=== PATIENT | female | born 1955 | race Caucasian/White ===

== ENCOUNTER → 2022-08-15 14:56 | Outpatient (BNVA) | payer OTHER, SELFPAY | PROVIDERS: PCP Internal Medicine; Visit Provider Nurse Practitioner Family | DX: G43.009 Migraine without aura, not intractable, without status migrainosus (principal); M54.2 Cervicalgia | CPT/HCPCS: 99202 ==

== ENCOUNTER → 2022-12-25 15:31 | Outpatient (BNVA) | payer MEDICARE, MEDICAID, SELFPAY | PROVIDERS: PCP Internal Medicine; Visit Provider Nurse Practitioner Family | DX: G43.009 Migraine without aura, not intractable, without status migrainosus (principal); M54.2 Cervicalgia; I10 Essential (primary) hypertension; Z79.899 Other long term (current) drug therapy | CPT/HCPCS: 99212 ==

== ENCOUNTER → 2023-05-19 15:00 | Outpatient (BNVA) | payer MEDICARE, MEDICAID, SELFPAY | PROVIDERS: Visit Provider Nurse Practitioner Family | DX: G43.009 Migraine without aura, not intractable, without status migrainosus (principal); M54.2 Cervicalgia | CPT/HCPCS: 99212 ==

== ENCOUNTER 2024-11-11 11:09 | Outpatient (AMB) | payer OTHER, SELFPAY ==
[2024-11-11 11:33] VITALS: BP 150/90; PULSE 70; O2SAT 97
--- NOTE | 2024-11-11 11:33 | A.OFFVIS_ITS ---
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 Accompanied by: Self / Same As Patient Allergies cat dander Allergy (Unknown, Verified 11/11/24 11:34) Unknown grass pollen Allergy (Unknown, Verified 11/11/24 11:34) Unknown Pork/Porcine Containing Products Adverse Reaction (Unknown, Unverified 11/11/24 11:59) mormon preference Medication List - Last Reconciled 11/11/24 by EMILY Lanza acetaminophen ER 650 mg PO Q8H PRN atorvastatin 40 mg PO DAILY cholecalciferol (vitamin D3) (Vitamin D3) 50 mcg PO DAILY donepezil 5 mg PO DAILY duloxetine 60 mg PO DAILY magnesium oxide 400 mg PO BEDTIME 30 days propranolol 10 mg PO BID 30 days riboflavin (vitamin B2) 400 mg PO DAILY 30 days tizanidine 2 mg PO BEDTIME PRN topiramate 100 mg PO BEDTIME 30 days HPI Comments Details: 69-yr-old female presents for f/u visit for migraine accompanied by her daughter, who helps with interpretation per patient request. Pt denies any significant interval medical changes. The migraines occur 2-3 times weekly, which are her typical migraine- characterized by pain moving from the back of the head to the temples. Severity is stable with medication. Blood pressure is elevated, 150/90 mmHg today against a baseline of 120s-130s/60s-80s, exacerbated by weather and missed medication dose. Denies any current chest pain, shortness of breath. They occasionally are shortness of breath on exertion. Current medications include Propranolol, topiramate, Tylenol,, alongside supplements. Previous Ibuprofen use was effective but ceased- per previous PCP was concerned for risk gastritis. Patient states she prefers ibuprofen for other joint pains as well. Recently was started on Cymbalta, however they do not believe she is taking this. She does not take capsules due to mormon reasons. She does have a new Voltaren gel order. Patient does not find Tylenol very effective. Liver disorder exists without renal issues. Pt reports headaches and neck pain are stable. Tolerating B2, Mag, Prorpanolol 10mg bid, and Topiramate well. Rarely needing to take Tylenol, but when she does it helps. Headache questionnaire: Age/time of onset: In her 60s Preceding causes: none Prodrome symptoms: None Aura: None Headache characteristics: Moderate-severe, 7/10, Starts in the neck and back of the head, and moves up over the head into frontal region. Pain is pounding then steady pain. Can also have a pinching sensation that turns into a full headache in bilateral temples. Associated symptoms: SBP > 120, some photophobia, phonophobia. Denies focal weakness, autonomic symptoms. Postdrome: Unsure Aggravating factors: Neck pain or BP > 120. [facility] Medical History (Updated 12/25/22 @ 16:25 by EMILY Lanza) Necrotizing soft tissue infection Allergic rhinitis MCI (mild cognitive impairment) Palpitations Prolonged QT interval Hepatitis B, chronic Urinary incontinence Dysphagia Chronic back pain Varicose veins of both lower extremities HLD (hyperlipidemia) HTN (hypertension) Surgical History History of carpal tunnel release Social History Alcohol intake: never Patient Tobacco Use Status: Never used Tobacco Physical Exam Vital Signs: Last Vital Signs Pulse 70 11/11/24 11:33 BP 150/90 H 11/11/24 11:33 Pulse Ox 97 11/11/24 11:33 Oxygen Delivery Method Room Air 11/11/24 11:33 Const General: cooperative and no acute distress Orientation/consciousness: patient oriented x3 HEENT Head: Yes normocephalic Resp Effort & Inspection: normal respiratory effort and able to speak in complete sentences Neuro General: patient oriented x3, gait normal and CN's II-XI intact bilaterally Cognition (Neuro): normal cognition Motor exam (neuro): 5/5 motor strength present throughout Psych Appearance: grossly normal Mental Status: mental status grossly normal Speech and movement: Normal speech and movement present Affect: normal affect Attitude: cooperative Thought process: Normal thought process present Assessment & Plan Assessment & Plan (1) Migraine without aura: Code(s): G43.009 - Migraine without aura, not intractable, without status migrainosus Category: Medical (2) Cervicalgia: Comment: C-spine MRI w/o ([facility] 10/02/2020): IMPRESSION: Stable minimal degenerative changes of the cervical spine. No high-grade spinal canal or foraminal stenosis. No abnormal signal within the cervical cord. Code(s): M54.2 - Cervicalgia Category: Medical Plan Foir HTN: Advised to check BP at home, elevated BP persists, consider increasing propranolol dose. Seek urgent medical attention if red flag symptoms develop. For acute migraine headache treatment: May continue Tylenol prn. Trial Ubrogepant (Ubrelvy) 100mg tab, 1/2 - 1 tab (50-100mg) at onset of headache, may repeat in 2 hours. Max of 2 tabs (200mg) per 24 hours. May adjunct with OTC Tylenol 650-1000 mg q 4-6 hours. Acute migraine medication contraindications: triptans d/t HLD, HTN ? For headache prevention medication: Continue Riboflavin 400mg qam Continue Magnesium 400mg qhs Continue Propranolol 10mg bid. Continue Topiramate 100mg qhs- for headaches and neck/shoulder pain. Previous migraine prevention medication trials: n/a Migraine prevention medication contraindications: none at this time. ? f/u in 6 months or sooner prn. Medications: New ubrogepant (Ubrelvy) take at onset of migraine, may repeat in 2hrs (may take w/ Tylenol) 50 - 100 mg (0.5 - 1 x 100 mg) PO ONCE 30 days PRN 16 tabs 3RF migraine headache Refilled propranolol 10 mg PO BID 30 days 60 tabs 6RF magnesium oxide may hold for loose stools 400 mg PO BEDTIME 30 days 30 tabs 11RF riboflavin (vitamin B2) 400 mg PO DAILY 30 days 30 tabs 11RF topiramate 100 mg PO BEDTIME 30 days 30 tabs 6RF Coding Level of Care Code Est Pt Level 4 (71327) Diagnoses Migraine without aura G43.009 Cervicalgia M54.2
--- OUTSIDE RECORDS SUMMARY | 2024-11-11 13:17 | XMS_ITS | Clinical Summary ---
Author Organization [facility] Address [address] [place] [address] Care Team Providers Care Adobe Layer Name Role Phone Dasha Cook Primary Care Provider [phone] Source Comments PLEASE NOTE, if this patient is a minor, it may be UNLAWFUL to discuss sensitive information that is contained in these records (such as FAMILY PLANNING, MENTAL HEALTH or SUBSTANCE ABUSE) with the minor patient's parent or other person without the patient's specific authorization.[facility] Allergies No known active allergies Medications vitamin D3 1,000 unit capsuleIndicati ons:Vitamin D deficiency disease Take 1 Cap by mouth once daily. 30 Cap 4 10/20/2014 Active ibuprofen (ADVIL,MOTRIN) 800 mg tabletIndicatio ns:Bilateral carpal tunnel syndrome Take 1 Tab by mouth 3 (three) times daily as needed for pain. Take with food. 90 Tab 2 06/07/2015 Active simvastatin (ZOCOR) 40 mg tablet Take 1 Tab by mouth nightly at bedtime. 30 Tab 6 07/25/2015 Active Active Problems Problem Noted Date Diagnosed Date Osteopenia 03/17/2014 Overview (10/20/2014): DEXA 03/17/14. Colonoscopy refused 01/14/2014 Right ankle pain 12/30/2010 Overview (04/21/2013): S/p sprain 12/30/10. F/u [facility] Vitamin D deficiency disease 10/31/2010 Bilateral shoulder pain 03/31/2008 Overview (04/21/2013): Injection right 08/29/11 @ [facility]. Hyperlipidemia 09/18/2007 LBP (low back pain) 02/14/2006 Overview (04/21/2013): [facility] Chronic hepatitis B (HCC-CMS) 12/23/2005 Overview (04/21/2013): F/u [facility]. Hep B SAG positive 12/2005. Bilateral carpal tunnel syndrome Overview (11/04/2013): F/u [facility]. Lateral epicondylitis of both elbows Left hip pain Overview (04/21/2013): POST-OP SCARIRING SECONDARY TO INFECTION 1998 LEFT HIP. POST-INJECTION ABSCESS LEFT GLUTEAL/HIP AREA. Immunizations Name Administration Dates Next Due INFLUENZA, SEASONAL, INJECTABLE 04/21/2013 MMR (MMR II/Priorix) 11/01/2008,11/25/2005 Td(adult),2 Lf tetanus toxoid,preservative free 12/25/2005,11/25/2005 Varicella, Live Vaccine 11/25/2005 Family History Medical History Relation Name Comments Heart Problems Father Relation Name Status Comments Father (Age 73) [place] Mother (Age 63) ? cause de ath Social History Tobacco Use Types Packs/Day Years Used Date Smoking Tobacco: Never Smokeless Tobacco: Never Alcohol Use Standard Drinks/Week Comments No 0 (1 standard drink = 0.6 oz pur e alcohol) Social Connections Answer Date Recorded Social Connections and Isolation 0 04/17/2019 Financial Resource Strain Answer Date R ecorded Financial Resource Strain 0 2018 Stress Answer Date Recorded Stress 0 04/17/2019 Physical Activity Answer Date Recorded Physical Activity 0 04/17/2019 Food Insecurity Answer Date Recorded Food 0 04/17/2019 Transportation Needs Answer Date Record ed Transportation 0 04/17/2019 Housing Stability Answer Date Recorded Housing 0 04/17/2019 Safety and Environment Answer Date Ervin rded Safety 0 04/17/2019 Utilities Answer Date Recorded Utilities 0 04/17/2019 Employment Answer Date Recorded Employment 0 04/17/2019 Comments No Sex and Gender Information Value Date Recorded Sex Assigned at Not on file Legal Sex Female 11:36 AM PDT Gender Identity Not on file Sexual Orientation Not on file Last Filed Vital Signs Vital Sign Reading Time Taken Comments Blood Pressure 102/60 10/20/2014 2:58 PM EST Pulse 56 10/20/2014 2:58 PM EST Temperature 36.2 ??C (97.2 ??F) 10/20/2014 2:58 PM ES T Respiratory Rate 13 10/20/2014 2:58 PM EST Oxygen Saturation - - Inhaled Oxygen Concentration - - Weight 65.8 kg (145 lb) 10/20/2014 2:58 PM EST Height 152.4 cm (5') 10/20/2014 2:58 PM EST Body Mass Index 28.32 10/20/2014 2:58 PM EST Plan of Treatment Not on file Insurance [facility] Care Teams Adobe Layer Relationship Specialty Start Date End Date Dasha Cook PA [address] [place] [id number] PCP - General 04/21/13
--- OUTSIDE RECORDS SUMMARY | 2024-11-11 13:17 | XMS_ITS | Encounter Summary ---
Author Organization [facility] Address [id number] [place] [id number] Care Team Providers Care [employer] Certified Network Associate Name Role Phone Juan Jonas MD Primary Care Provider [phone] Reason for Referral * Imaging (Routine) - Pending Review Specialty Diagnoses / Procedures Referred By Suyapa nelson Referred To Contact Radiology Diagnoses Hepatitis B, chronic (CMS/HCC) Procedures US Abdomen Complete Geoffrey Vargas MD [address] [address] Phone: tel: fax: [address] [address] Phone: tel: Referral ID Status Reason Start Date Expiration Date V isits Requested Visits Authorized [id number] Pending Review 11/02/2024 11/02/2025 1 1 Reason for Visit * Reason Comments Medicare Annual Wellness Visit Initial Encounter Details Date Type Department Care Team (Latest Contact Info) Description 11/02/2024 2:30 PM EDT Office Visit Internal Medicine - [address] [phone] Geoffrey Vargas MD [address] [address] Medicare annual wellness visit, subsequent (Primary Dx); Routine general medical examination at a health care facility; Mixed hyperlipidemia; Vitamin D deficiency; Allergic rhinitis, unspecified seasonality, unspecified trigger; Pain of left hip; Chronic nonintractable headache, unspecified headache type; Chronic left shoulder pain; Colon cancer screening; Other fatigue; Other abnormal glucose; Hepatitis B, chronic (CMS/HCC); Chronic osteoarthritis Social History Tobacco Use Types Packs/Day Years Used Date Smoking Tobacco: Never Smokeless Tobacco: Never Alcohol Use Standard Drinks/Week Comments No 0 (1 standard drink = 0.6 oz pur e alcohol) Comments Unknown Sex and Gender Information Value Date Recorded Sex Assigned at Female 11/11/2024 10:33 AM EDT Legal Sex Female 1:48 AM EST Gender Identity Female 11/11/2024 10:33 AM EDT Sexual Orientation Straight 11/11/2024 10 :33 AM EDT documented as of this encounter Last Filed Vital Signs Vital Sign Reading Time Taken Comments Blood Pressure 128/62 11/02/2024 2:32 PM EDT Pulse 95 11/02/2024 2:32 PM EDT Temperature - - Respiratory Rate - - Oxygen Saturation 98% 11/02/2024 2:32 PM EDT Inhaled Oxygen Concentration - - Weight 68 kg (150 lb) 11/02/2024 2:32 PM EDT Height - - Body Mass Index 27.44 05/30/2023 3:34 PM EDT documented in this encounter Patient Instructions * Attachments The following attachments cannot be sent through Care Everywhere. * Mammogram (Mauritian) * Colon Cancer: Screening (Mauritian) * Healthy Eating: At Home: Quick List (Mauritian) * Physical Activity: Walking (Mauritian) * Advance Directives (Mauritian) * Advance Care Planning (Mauritian) documented in this encounter Ordered Prescriptions Prescription Sig Dispense Quantity Refills Last Filled Start Date End Date cholecalciferol (Vitamin D3) 50 mcg (2,000 unit) tablet Take 1 tablet (2,000 Units total) by mouth 1 (one) time each day. 90 tablet 1 11/06/2024 diclofenac (VOLTAREN) 1 % topical gel Apply 2 g topically 4 (four) times a day. 100 g 5 11/02/2024 acetaminophen (Tylenol Extra Strength) 500 mg tablet Take 2 tablets (1,000 mg total) by mouth every 6 (six) hours if needed for mild pain. 90 tablet 2 11/02/2024 5 documented in this encounter Progress Notes * Geoffrey Vargas MD - 11/02/2024 2:30 PM EDT Annual Wellness Visit Health Maintenance Due Topic Date Due ??? Pneumococcal Vaccine: 50+ Years (1 of 2 - PCV) Never done ??? Zoster Vaccines (1 of 2) 2007 ??? Colorectal Cancer Screening: Colonoscopy Never done ??? Depression Screening Never done ??? Hepatitis C Screening Never done ??? Social Influencers of Health Screening Never done ??? Medicare Annual Wellness Visit Never done ??? Influenza Vaccine (1) 04/25/2024 ??? COVID-19 Vaccine ( season) 2024 Adult vaccinations: CDC Recommendations Resources for Educating Adult Patients about Vaccines CDC * Geoffrey Vargas MD - 11/02/2024 2:30 PM EDTAddended by: GEOFFREY VARGAS on: 11/06/2024 12:24 PM Modules accepted: Orders * Geoffrey Vargas MD - 11/02/2024 2:30 PM EDT Michelle Mariano is a 69 y.o. female who presents for a Subsequent Medicare Annual Wellness Visit. HPI History of Present Illness The patient is a 69-year-old female presenting for a Medicare annual wellness visit and follow-up. She is accompanied by her daughter. 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 MEDICATIONS Current: gabapentin, ibuprofen, Tylenol IMMUNIZATIONS She is due for influenza, COVID-19 booster, RSV, and pneumonia vaccines. Current Providers List: Patient Care Team: Juan Jonas MD as PCP - General (Internal Medicine) Risk Assessments Body mass index is 27.44 kg/m??. The BMI is in the acceptable range. Calculated fall risk level: low Depression Risk Score: 1 Depression Severity: None-minimal Proposed Treatment Actions: None Hearing Whisper Test: PASS Vision Screening Was a Snellen eye exam done?: Yes Mini Cog Clock Drawing Test: 0 Word Recall: 2 Mini Cog Score: 2 Mini Cog Results: Positive screen for dementia STEADI Fall Risk Have you fallen in the past year? no Feels unsteady when standing or walking? no Are you worried about falling? no Activity of Daily Living (ADLs) Do you need help from others for your personal care such as eating, dressing, toileting, or gettingaround the house?: Yes Do you experience incontinence?: No Instrumental Activities of Daily Living (IADLs) Do you need help with using the telephone?: No Do you need help with shopping?: Yes Do you need help with food preparation?: Yes Do you need help with housekeeping?: Yes Do you need help with laundry?: Yes Do you need help handling finances?: Yes Do you drive?: No Do you manage your own medication?: No Health Status In general, the patient reports health as: fair In general, patient reports life as: good Patient reports sleep pattern as: restless Have you seen a dentist in the last year?: Yes Physical Activity Do you exercise for about 20 minutes or more three days a week?: Yes, most of the time Nutritional Assessment Do you eat a balanced diet including daily serving of fruits, vegetables, and whole grains?: Yes, most of the time Depression Screening (PHQ2) Will the patient answer the depression risk questions?: Y Over the last 2 weeks, how often have you been bothered by little interest or pleasure in doing things?: 1 Over the last 2 weeks, how often have you been bothered by feeling down, depressed, or hopeless?: 0 Depression Risk: 1 Additional Depression Screening (PHQ9) Depression Risk Score NEW: 1 Opioid Risk Tool No data recorded [facility] Status ([facility]) No data recorded Comprehensive Medical and Social History Patient Active Problem List Diagnosis Allergic rhinitis Back pain, chronic Chronic hand pain, left Dysphagia Hepatitis B, chronic (CMS/HCC) Hyperlipidemia MCI (mild cognitive impairment) Palpitations Prolonged QT interval Sinus bradycardia Urinary incontinence Varicose veins of both lower extremities Vitamin deficiency Past Medical History: Diagnosis Date Allergic rhinitis 04/15/2016 DX:Allergic rhinitis Back pain, chronic 01/15/2018 DX:Back pain, chronic Chronic hand pain, left 05/25/2018 DX:Chronic hand pain, left Dysphagia 01/15/2018 DX:Dysphagia Hepatitis B, chronic (CMS/HCC) 12/04/2016 DX:Hepatitis B, chronic (HCC) Hyperlipidemia 05/25/2018 DX:Hyperlipidemia MCI (mild cognitive impairment) 06/21/2016 DX:MCI (mild cognitive impairment) Palpitations 11/22/2016 DX:Palpitations Prolonged QT interval 11/22/2016 DX:Prolonged QT interval Sinus bradycardia 05/16/2016 DX:Sinus bradycardia Urinary incontinence 01/15/2018 DX:Urinary incontinence Vitamin deficiency 01/15/2018 DX:Vitamin deficiency No family history on file. reports that she has never smoked. She has never used smokeless tobacco. She reports that she does not drink alcohol and does not use drugs. Past Surgical History: Procedure Laterality Date CARPAL TUNNEL RELEASE Right PROCEDURE: CO NEUROPLASTY &/TRANSPOS MEDIAN NRV CARPAL TUNNE OTHER SURGICAL HISTORY PROCEDURE: HISTORY OTHER; COMMENT: skin debridement for necrotizing infection Allergies Allergen Reactions Other Cats Seasonal Current Outpatient Medications Medication Sig Dispense Refill amLODIPine (NORVASC) 5 mg tablet TAKE 1 TABLET BY MOUTH EVERY DAY 90 tablet 1 ammonium lactate (AMLACTIN) 12 % cream Apply topically if needed for dry skin. 280 g 2 atorvastatin (LIPITOR) 40 mg tablet TAKE 1 TABLET BY MOUTH EVERY DAY 90 tablet 1 betamethasone, augmented, (DIPROLENE-AF) 0.05 % cream APPLY TWICE A DAY ON THE RASH FOR 10 DAYS donepeziL (ARICEPT) 5 mg tablet TAKE 1 TABLET BY MOUTH EVERYDAY AT BEDTIME 90 tablet 1 DULoxetine (CYMBALTA) [address] capsule TAKE 1 CAPSULE BY MOUTH EVERY DAY 90 capsule 1 ibuprofen (ADVIL,MOTRIN) 600 mg tablet Take 1 Tablet by mouth daily as needed for Pain. miscellaneous medical supply misc 1 Device by Does not apply route daily. Compression 1520 Diagnosis Code I83.93 oxyBUTYnin (DITROPAN) 5 mg tablet TAKE 1 TABLET BY MOUTH TWICE A DAY 180 tablet 1 propranoloL (INDERAL) 10 mg tablet TAKE 1 TABLET BY MOUTH TWICE A DAY 180 tablet 1 tiZANidine (ZANAFLEX) 2 mg tablet TAKE 1 TABLET BY MOUTH AT BEDTIME NEEDED FOR UP TO 90 DAYS 90 tablet 1 topiramate (TOPAMAX) 100 mg tablet Take 1 tablet (100 mg total) by mouth 1 (one) time each day. 90 tablet 1 urea (CARMOL) 20 % cream Apply twice daily on the right meyers area. For 10 days Vitamin D3 50 mcg (2,000 unit) tablet TAKE 1 TABLET BY MOUTH EVERY DAY 90 tablet 1 No current facility-administered medications for this visit. Review of Systems as per HPI Objective: Vitals: 11/02/24 1432 BP: 128/62 Pulse: 95 SpO2: 98% Weight: 68 kg (150 lb) Physical Exam Physical Exam General Appearance: well appearing and not on acute distress HEENT: Normocephalic. External ears normal. Nose normal. Mucous membranes are moist. Oropharynx is clear. Eyes: Conjunctivae normal. Respiratory: Lungs are clear. Cardiovascular: Normal heart sounds. Gastrointestinal: Bowel sounds are normal. Abdomen is soft. Back, Musculoskeletal: Normal range of motion. Normal cervical range of motion and neck supple. Skin: Warm and dry, no rash. Neurological: Alert. Results Assessment/Plan: Plan Health Maintenance Topic Date Due Hepatitis A Vaccines (1 of 2 - Risk 2-dose series) Never done Pneumococcal Vaccine: 50+ Years (1 of 2 - PCV) Never done Zoster Vaccines (1 of 2) 2007 Hepatitis B Vaccines (1 of 3 - Risk 3-dose series) Never done RSV Immunization Patients 60+ Years Old (1 - Risk 60-74 years 1-dose series) Never done Colorectal Cancer Screening: Colonoscopy Never done Hepatitis C Screening Never done Influenza Vaccine (1) 04/25/2024 COVID-19 Vaccine (4 - 2023- season) 2024 Hypertension/CHF/CAD Annual BMP Blood Test 05/19/2025 Breast Cancer Screening 09/22/2025 Falls Risk Assessment 11/02/2025 Depression Screening 11/02/2025 Social Influencers of Health Screening 11/02/2025 Medicare Annual Wellness Visit 11/02/2025 Osteoporosis Screening (Bone Density Screening) 01/31/2028 Cholesterol Screening (Lipid Panel) 05/19/2029 DTaP,Tdap,and Td Vaccines (4 - Td or Tdap) 06/29/2029 HIB Vaccines Aged Out IPV Vaccines Aged Out MMR Vaccines Aged Out Varicella Vaccines Aged Out Meningococcal ACWY Vaccine Aged Out Meningococcal B Vacine Aged Out HPV Vaccines Aged Out RSV Immunization Patients Under 20 months Aged Out Code status: Full Code - Confirmed Preventative recommendations were reviewed and discussed with the patient. During the visit we discussed: Code status was discussed. Advanced Directives: has an advanced directive - a copy has been provided Patient Instructions (the written plan) were given to the patient. Medicare annual wellness visit, subsequent (Primary) - CBC and differential; Future - Hemoglobin A1c; Future - Comprehensive metabolic panel; Future - Lipid panel with reflex to direct LDL; Future - Vitamin D 25 hydroxy; Future - Thyroid stimulating hormone with reflex to free t4 and free t3; Future Routine general medical examination at a health care facility Mixed hyperlipidemia - Lipid panel with reflex to direct LDL; Future Vitamin D deficiency - Vitamin D 25 hydroxy; Future Allergic rhinitis, unspecified seasonality, unspecified trigger Pain of left hip Chronic nonintractable headache, unspecified headache type Chronic left shoulder pain Colon cancer screening - Cologuard?? colon cancer screening; Future Other fatigue - CBC and differential; Future - Comprehensive metabolic panel; Future - Thyroid stimulating hormone with reflex to free t4 and free t3; Future Other abnormal glucose - Hemoglobin A1c; Future Hepatitis B, chronic (CMS/HCC) - US Abdomen Complete; Future - Hepatitis B surface antibody; Future - Hepatitis B e antibody; Future Other orders - Full code - Confirmed Assessment & Plan 1. Left hip pain: Controlled. - Mild physical activity (walking with walker 10-15 min twice daily) - Tylenol (2 tablets up to 4 times daily) - Voltaren gel - Warm compresses 2. Migraines: - Continue follow-up with EMILY Knight 3. Adhesive capsulitis, left shoulder: - Receiving injections from orthopedic surgeon in [place] 4. Chronic hepatitis B: - Routine blood tests - Liver function tests - Ultrasound ordered 5. Constipation: - High-fiber diet - List provided 6. Hypercholesterolemia: - Continue current management - High-fiber diet 7. Health maintenance: - Due for influenza, COVID-19 booster, RSV, and pneumonia vaccines - Noted in paperwork, can receive at any pharmacy - Declined colonoscopy, Cologuard testing ordered - Instructions for stool sample collection and return provided - No regular gynecological checkups needed after age 65 - Healthcare proxy form provided Follow-up - Blood work results to be reviewed and any necessary medications to be prescribed - Appointment with Dr. Jonas to be scheduled PROCEDURE Received injection for left hip pain post-surgery for abscess 20+ years ago. Receiving injections for adhesive capsulitis in left shoulder from orthopedic surgeon in [place]. I have obtained verbal consent from Sean Mariano prior to the recording. I have advised Sean Mariano that she may refuse the recording and require the recording to be turned off at any time during this encounter. Follow up in 1 year (on 11/02/2025) for Medicare Annual Wellness Exam. documented in this encounter Plan of Treatment Upcoming Encounters Date Type Department Care Team (Late st Contact Info) Description 11/26/2024 8:30 AM EDT Appointment [facility] Ultrasound [address] [place] [address] Scheduled Orders Name Type Priority Associated Diagnoses Orde r Schedule Cologuard?? colon cancer screening Lab Routine Colon cancer screening 1 Occurrences starting 11/02/2024 until 11/02/2025 US Abdomen Complete Imaging Routine Hepatitis B, chronic (CMS/HCC) Expected: 11/02/2024, Expires: 11/02/2025 documented as of this encounter Results * (ABNORMAL) Hepatitis B e antibody (11/05/2024 12:37 PM EDT) Hepatitis Be Antibody REACTIVE( A) Nonreactive 11/08/2024 6:10 AM EDT [facility] Comment: Test performed at [facility], [address], [place], [place] ??[address] ? [phone] Mile Roth MD, PhD - Personnel Interviewer Blood Venous blood specimen / Unknown Venipuncture / Unknown 11/05/2024 12:37 PM EDT 11/05/2024 1:35 PM EDT Geoffrey Vargas MD LAB BLOOD ORDERABLES Final Resul t Performing Organization Address City/[facility] Co de Phone Number MICHELE PEREZ [address] [place] [address] * Hepatitis B surface antibody (11/05/2024 12:37 PM EDT) Hepatitis B Surface Ab Negative Negative LAB CHEMISTRY METHOD 11/05/2024 2:44 PM EDT [facility] Hepatitis B Surface Ab Quantitative 3.2 mIU/mL LAB CHEMISTRY METHOD 11/05/2024 2:44 PM EDT [facility] Blood Venous blood specimen / Unknown Venipuncture / Unknown 11/05/2024 12:37 PM EDT 11/05/2024 1:35 PM EDT Narrative [facility] - 11/05/2024 2:44 PM EDT >=10 mIU/mL is considered to be consistent with immunity. Geoffrey Vargas MD LAB BLOOD ORDERABLES Final Resul t Performing Organization Address [facility] de Phone Number [facility] [address] [place] [address], [place] [phone] * Thyroid stimulating hormone with reflex to free t4 and free t3 (11/05/2024 12:37 PM EDT) TSH 1.85 0.40 - 4.00 mcIU/mL LAB CHEMISTRY METHOD 11/05/2024 2:45 PM EDT [facility] Blood Venous blood specimen / Unknown Venipuncture / Unknown 11/05/2024 12:37 PM EDT 11/05/2024 1:35 PM EDT Geoffrey Vargas MD LAB BLOOD ORDERABLES Final Resul t Performing Organization Address City/[facility]/ZIP Co de Phone Number [facility] [address] [place] [address], [place] [phone] * (ABNORMAL) Vitamin D 25 hydroxy (11/05/2024 12:37 PM EDT) [facility] Vit D, 25-Hydroxy 16.2(L) 30.0 - 80.0 ng/mL LAB CHEMISTRY METHOD 11/05/2024 2:44 PM EDT [facility] Blood Venous blood specimen / Unknown Venipuncture / Unknown 11/05/2024 12:37 PM EDT 11/05/2024 1:35 PM EDT Geoffrey Vargas MD LAB BLOOD ORDERABLES Final Resul t Performing Organization Address [facility] Co de Phone Number [facility] [address] [place] [address], [place] [phone] * (ABNORMAL) Lipid panel with reflex to direct LDL (11/05/2024 12:37 PM EDT) [facility] Cholesterol 216(H) 0 - 200 mg/dL LAB CHEMISTRY METHOD 11/05/2024 3:00 PM EDT [facility] Triglycerides 72 0 - 150 mg/dL LAB CHEMISTRY METHOD 11/05/2024 3:00 PM EDT [facility] HDL 55 >=40 mg/dL LAB CHEMISTRY METHOD 11/05/2024 3:00 PM EDT [facility] LDL Calculated 147(H) 0 - 100 mg/dL LAB CHEMISTRY METHOD 11/05/2024 3:00 PM EDT [facility] VLDL Cholesterol Gopi 14.4 mg/dL LAB CHEMISTRY METHOD 11/05/2024 3:00 PM EDT [facility] Non HDL Chol. (LDL+VLDL) 161(H) <145 mg/dL LAB CHEMISTRY METHOD 11/05/2024 3:00 PM EDT [facility] Chol/HDL Ratio 3.9 0.0 - 4.4 LAB CHEMISTRY METHOD 11/05/2024 3:[address] [facility] Blood Venous blood specimen / Unknown Venipuncture / Unknown 11/05/2024 12:37 PM EDT 11/05/2024 1:35 PM EDT us Geoffrey Vargas MD LAB BLOOD ORDERABLES Final Resul t [facility] [address] [place] [address], [place] [phone] * (ABNORMAL) Comprehensive metabolic panel (11/05/2024 12:37 PM EDT) Sodium 141 133 - 145 mmol/L LAB CHEMISTRY METHOD 11/05/2024 3:[address] [facility] Potassium 5.0 3.5 - 5.5 mmol/L LAB CHEMISTRY METHOD 11/05/2024 3:[address] [facility] Comment:Hemolysis present Chloride 110 96 - 110 mmol/L LAB CHEMISTRY METHOD 11/05/2024 3:[address] [facility] CO2 22 21 - 32 mmol/L LAB CHEMISTRY METHOD 11/05/2024 3:[address] [facility] Anion Gap 9 3 - 11 LAB CHEMISTRY METHOD 11/05/2024 3:[address] [facility] Glucose 112(H) 70 - 100 mg/dL LAB CHEMISTRY METHOD 11/05/2024 3:[address] [facility] BUN 13 5 - 25 mg/dL LAB CHEMISTRY METHOD 11/05/2024 3:[address] [facility] Creatinine 0.51 0.50 - 1.10 mg/dL LAB CHEMISTRY METHOD 11/05/2024 3:[address] [facility] eGFR 102 >=60 mL/min/1. 73m2 LAB CHEMISTRY METHOD 11/05/2024 3:[address] [facility] Comment:Calculation based on the??Chronic Kidney Disease Epidemiology Collaboration (CKD-EPI) equation refit??without adjustment for race. BUN/Creatinine Ratio 25.5 LAB CHEMISTRY METHOD 11/05/2024 3:[address] [facility] Calcium 9.2 8.5 - 10.5 mg/dL LAB CHEMISTRY METHOD 11/05/2024 3:[address] [facility] AST (SGOT) 31 10 - 42 unit/L LAB CHEMISTRY METHOD 11/05/2024 3:[address] [facility] Comment:Hemolysis present ALT (SGPT) 26 10 - 60 unit/L LAB CHEMISTRY METHOD 11/05/2024 3:[address] [facility] Alkaline Phosphatase 89 42 - 121 unit/L LAB CHEMISTRY METHOD 11/05/2024 3:[address] [facility] Total Protein 7.4 6.0 - 8.0 g/dL LAB CHEMISTRY METHOD 11/05/2024 3:[address] [facility] Albumin 3.9 3.2 - 5.0 g/dL LAB CHEMISTRY METHOD 11/05/2024 3:[address] [facility] Total Bilirubin 0.4 0.0 - 1.4 mg/dL LAB CHEMISTRY METHOD 11/05/2024 3:[address] [facility] Blood Venous blood specimen / Unknown Venipuncture / Unknown 11/05/2024 12:37 PM EDT 11/05/2024 1:35 PM EDT us Geoffrey Vargas MD LAB BLOOD ORDERABLES Final Resul t [facility] [address] [place] [address], [place] [phone] * Hemoglobin A1c (11/05/2024 12:37 PM EDT) Hemoglobin A1C 5.9 <6.5 % LAB CHEMISTRY METHOD 11/05/2024 8:25 PM EDT [facility] Mean Bld Glu Estim. 123 mg/dL LAB CHEMISTRY METHOD 11/05/2024 8:25 PM EDT [facility] Blood Venous blood specimen / Unknown Venipuncture / Unknown 11/05/2024 12:37 PM EDT 11/05/2024 1:40 PM EDT Geoffrey Vargas MD LAB BLOOD ORDERABLES Final Resul t [facility] [address] [place] [address], [place] [phone] documented in this encounter Visit Diagnoses Diagnosis Medicare annual wellness visit, subsequent- Primary Routine general medical examination at a health care facility Mixed hyperlipidemia Vitamin D deficiency Allergic rhinitis, unspecified seasonality, unspecified trigger Pain of left hip Chronic nonintractable headache, unspecified headache type Chronic left shoulder pain Pain in joint, shoulder region Colon cancer screening Special screening for malignant neoplasms, colon Other fatigue Other abnormal glucose Hepatitis B, chronic (CMS/HCC) Viral hepatitis B without mention of hepatic coma, chronic, without mention of hepatitis delta Chronic osteoarthritis Osteoarthrosis, unspecified whether generalized or localized, unspecified site documented in this encounter Discontinued Medications Medication Sig Discontinue Reason Start Date End Da te ibuprofen (ADVIL,MOTRIN) 600 mg tablet Take 1 Tablet by mouth daily as needed for Pain. Non-compliance 02/25/2024 11/02/2024 Vitamin D3 50 mcg (2,000 unit) tablet TAKE 1 TABLET BY MOUTH EVERY DAY Reorder 09/21/2024 11/06/2024 documented as of this encounter Orders Code Status Count Last Ordered Date First Orde red Date FULL CODE CONFIRMED 1 11/02/2024 documented in this encounter Additional Health Concerns Assessment Noted Time PHQ-9 Depression Total Score: 1 11/03/19 25 2:31 PM EDT A fall risk assessment has been complete d for the patient 11/02/2024 2:29 PM EDT documented as of this encounter Care Teams [employer] Certified Network Associate Relationship Specialty Start Date End Date Juan Jonas MD [address] [address] PCP - General Internal Medicine 05/17/20 documented as of this encounter
--- OUTSIDE RECORDS SUMMARY | 2024-11-11 13:17 | XMS_ITS | Clinical Summary ---
Author Organization [address] [facility] Address [address] [place] [address] Phone Care Team Providers Care Outreach Professional Name Role Phone Juan Jonas MD Primary Care Provider [phone] Allergies Active Allergy Reactions Criticality Noted Date Comments Other 05/30/2023 Cats Seasonal Medications ammonium lactate (AMLACTIN) 12 % cream Apply topically if needed for dry skin. 280 g 2 4 Active topiramate (TOPAMAX) 100 mg tablet Take 1 tablet (100 mg total) by mouth 1 (one) time each day. 90 tablet 1 4 Active propranoloL (INDERAL) 10 mg tablet TAKE 1 TABLET BY MOUTH TWICE A DAY 180 tablet 1 4 Active oxyBUTYnin (DITROPAN) 5 mg tablet TAKE 1 TABLET BY MOUTH TWICE A DAY 180 tablet 1 5 Active tiZANidine (ZANAFLEX) 2 mg tablet TAKE 1 TABLET BY MOUTH AT BEDTIME NEEDED FOR UP TO 90 DAYS 90 tablet 1 5 Active atorvastatin (LIPITOR) 40 mg tablet TAKE 1 TABLET BY MOUTH EVERY DAY 90 tablet 1 5 Active donepeziL (ARICEPT) 5 mg tablet TAKE 1 TABLET BY MOUTH EVERYDAY AT BEDTIME 90 tablet 1 5 Active amLODIPine (NORVASC) 5 mg tablet TAKE 1 TABLET BY MOUTH EVERY DAY 90 tablet 1 5 Active DULoxetine (CYMBALTA) 60 mg capsuleIndmaryam ions:Radiculop athy, cervical region TAKE 1 CAPSULE BY MOUTH EVERY DAY 90 capsule 1 5 Active betamethasone, augmented, (DIPROLENE-AF) 0.05 % cream APPLY TWICE A DAY ON THE RASH FOR 10 DAYS 4 Active urea (CARMOL) 20 % cream Apply twice daily on the right meyers area. For 10 days 3 Active miscellaneous medical supply misc 1 Device by Does not apply route daily. Compression 1520 Diagnosis Code I83.93 9 Active acetaminophen (Tylenol Extra Strength) 500 mg tablet Take 2 tablets (1,000 mg total) by mouth every 6 (six) hours if needed for mild pain. 90 tablet 2 5 02/01/20 25 Active diclofenac (VOLTAREN) 1 % topical gel Apply 2 g topically 4 (four) times a day. 100 g 5 5 05/01/20 25 Active cholecalcifero l (Vitamin D3) 50 mcg (2,000 unit) tablet Take 1 tablet (2,000 Units total) by mouth 1 (one) time each day. 90 tablet 1 5 Active Vitamin D3 50 mcg (2,000 unit) tablet TAKE 1 TABLET BY MOUTH EVERY DAY 90 tablet 1 5 11/07/19 25 Discontin ued(Reord er) ibuprofen (ADVIL,MOTRIN) 600 mg tablet Take 1 Tablet by mouth daily as needed for Pain. 4 11/03/19 25 Discontin ued(Non-c ompliance ) Active Problems Problem Noted Date Diagnosed Date Chronic osteoarthritis 11/02/2024 Varicose veins of both lower extremities 019 Chronic hand pain, left 05/25/2018 Hyperlipidemia 05/25/2018 Back pain, chronic 01/15/2018 Dysphagia 01/15/2018 Urinary incontinence 01/15/2018 Vitamin deficiency 01/15/2018 Hepatitis B, chronic 12/04/2016 Palpitations 11/22/2016 Prolonged QT interval 11/22/2016 MCI (mild cognitive impairment) 06/21/2016 Sinus bradycardia 05/16/2016 Allergic rhinitis 04/15/2016 Encounters Date Type Department Care Team Description 11/02/2024 2:30 PM EDT Office Visit Internal Medicine - [address] [place] [address] Candida Vargas MD Medicare annual wellness visit, subsequent (Primary Dx); Routine general medical examination at a health care facility; Mixed hyperlipidemia; Vitamin D deficiency; Allergic rhinitis, unspecified seasonality, unspecified trigger; Pain of left hip; Chronic nonintractable headache, unspecified headache type; Chronic left shoulder pain; Colon cancer screening; Other fatigue; Other abnormal glucose; Hepatitis B, chronic (CMS/HCC); Chronic osteoarthritis from Last 3 Months Immunizations Name Administration Dates Next Due Influenza Quadravalent, MDCK , 0.5ml, preservative free (Flucelvax) 6mo and older 06/29/2019 Influenza trivalent, 0.5mL ( Fluad) 65yo and older 07/01/2023 Pfizer SARS-CoV-2 COVID-19, mRNA, LNP-S, preservative free 09/18/2021,02/12/2021,01/22/2021 Tdap Tetanus diptheria acell ular pertussis (Boostrix; Adacel) 7yo and older 06/29/2019 Surgical History Surgery Date Site/Laterality Comments OTHER SURGICAL HISTORY PROCEDURE: HISTORY OTHER; COMMENT: skin debridement for necrotizing infection CARPAL TUNNEL RELEASE Right PROCEDURE: SC NEUROPLASTY &/TRANSPOS MEDIAN NRV CARPAL TUNNE Medical History Medical History Date Comments Allergic rhinitis 04/15/2016 DX:Allergic rh initis Back pain, chronic 01/15/2018 DX:Back pain, chronic Chronic hand pain, left 05/25/2018 DX:Chron ic hand pain, left Dysphagia 01/15/2018 DX:Dysphagia Hepatitis B, chronic (CMS/HCC) 12/04/2016 D X:Hepatitis B, chronic (HCC) Hyperlipidemia 05/25/2018 DX:Hyperlipidemi a MCI (mild cognitive impairment) 06/21/2016 DX:MCI (mild cognitive impairment) Palpitations 11/22/2016 DX:Palpitations Prolonged QT interval 11/22/2016 DX:Prolong ed QT interval Sinus bradycardia 05/16/2016 DX:Sinus eric cardia Urinary incontinence 01/15/2018 DX:Urinary incontinence Vitamin deficiency 01/15/2018 DX:Vitamin de ficiency Social History Tobacco Use Types Packs/Day Years [...] Orientation Straight 11/11/2024 10 :33 AM EDT Obstetrics History Last Filed Vital Signs Vital Sign Reading Time Taken Comments Blood Pressure 128/62 11/02/2024 2:32 PM EDT Pulse 95 11/02/2024 2:32 PM EDT Temperature - - Respiratory Rate - - Oxygen Saturation 98% 11/02/2024 2:32 PM EDT Inhaled Oxygen Concentration - - Weight 68 kg (150 lb) 11/02/2024 2:32 PM EDT Height 157.5 cm (5' 2 ) 05/30/2023 3:34 PM EDT Body Mass Index 27.44 05/30/2023 3:34 PM EDT Plan of Treatment Upcoming Encounters Date Type Department Care Team (Late st Contact Info) Description 11/26/2024 8:30 AM EDT Appointment [facility] Ultrasound [address] [place] [address] Health Maintenance Due Date Last Done Comments Hepatitis A Vaccines (1 of 2 - Risk 2-dose series) 1976 Pneumococcal Vaccine: 50+ Years (1 of 2 - PCV) 1976 Zoster Vaccines (1 of 2) 2007 11/25/2005 Hepatitis B Vaccines (1 of 3 - Risk 3-dose series) 2017 RSV Immunization Patients 60+ Years Old (1 - Risk 60-74 years 1-dose series) 2017 Colorectal Cancer Screening: Colonoscopy 08/03/2022 Hepatitis C Screening 08/03/2022 COVID-19 Vaccine ( season) 2024 09/18/2021, 02/12/2021, 01/22/2021 Influenza Vaccine (#1) 2024 , 06/29/2019, 04/21/2013 Breast Cancer Screening 09/22/2025 09/22/19 24, 09/17/2022, 09/07/2021, Additional history exists Depression Screening 11/02/2025 11/02/2024 Falls Risk Assessment 11/02/2025 11/02/2024 Medicare Annual Wellness Visit 11/02/2025 11/02/2024 Social Influencers of Health Screening 11/02/2025 11/02/2024 Hypertension/CHF/CAD Annual BMP Blood Test 11/05/2025 11/05/2024, 05/19/2024, 05/19/2024, Additional history exists Osteoporosis Screening (Bone Density Screening) 01/31/2028 01/30/2018 DTaP,Tdap,and Td Vaccines (4 - Td or Tdap) 06/29/2029 06/29/2019, 12/25/2005, 11/25/2005 Cholesterol Screening (Lipid Panel) 11/05/2029 11/05/2024, 05/19/2024, 05/19/2024, Additional history exists Varicella Vaccines Aged Out 11/25/2005 No longer eligible based on patient's age to complete this topic MMR Vaccines Aged Out 11/01/2008, 11/25/2005 No lo nger eligible based on patient's age to complete this topic HIB Vaccines Aged Out No longer eligi ble based on patient's age to complete this topic HPV Vaccines Aged Out No longer eligi ble based on patient's age to complete this topic IPV Vaccines Aged Out No longer eligi ble based on patient's age to complete this topic Meningococcal ACWY Vaccine Aged Out N o longer eligible based on patient's age to complete this topic Meningococcal B Vacine Aged Out No lo nger eligible based on patient's age to complete this topic RSV Immunization Patients Under 20 months Aged Out No longer eligible based on patient's age to complete this topic Procedures Procedure Name Priority Date/Time Associated Diagnosis Comments CBC WITH AUTO DIFFERENTIAL Routine 11/05/2024 12:37 PM EDT Medicare annual wellness visit, subsequent Other fatigue CBC AND DIFFERENTIAL Routine 11/05/2024 12:37 PM EDT Medicare annual wellness visit, subsequent Other fatigue HEMOGLOBIN A1C Routine 11/05/2024 12:37 PM EDT Medicare annual wellness visit, subsequent Other abnormal glucose COMPREHENSIVE METABOLIC PANEL Routine 11/05/2024 12:37 PM EDT Medicare annual wellness visit, subsequent Other fatigue LIPID PANEL WITH REFLEX TO DIRECT LDL Routine 11/05/2024 12:37 PM EDT Medicare annual wellness visit, subsequent Mixed hyperlipidemia VITAMIN D 25 HYDROXY Routine 11/05/2024 12:37 PM EDT Medicare annual wellness visit, subsequent Vitamin D deficiency THYROID STIMULATING HORMONE WITH REFLEX TO FREE T4 AND FREE T3 Routine 11/05/2024 12:37 PM EDT Medicare annual wellness visit, subsequent Other fatigue HEPATITIS B SURFACE ANTIBODY Routine 11/05/2024 12:37 PM EDT Hepatitis B, chronic (CMS/HCC) HEPATITIS B E ANTIBODY Routine 11/05/2024 12:37 PM EDT Hepatitis B, chronic (CMS/HCC) [facility] SCREENING DIGITAL Routine 09/22/2023 4:42 PM EST Encounter for screening mammogram for malignant neoplasm of breast [facility] DEXA AXIAL SKELETON Routine 01/30/2018 5:17 PM EDT Encounter for screening for osteoporosis from Last 3 Months or Most Recently Relevant to Health Maintenance Results * Thyroid stimulating hormone with reflex to free t4 and free t3 (11/05/2024 12:37 PM EDT) [facility] TSH 1.85 0.40 - 4.00 mcIU/mL LAB CHEMISTRY METHOD 11/05/2024 2:45 PM EDT [facility] Blood Venous blood specimen / Unknown Venipuncture / Unknown 11/05/2024 12:37 PM EDT 11/05/2024 1:35 PM EDT us Candida Vargas MD LAB BLOOD ORDERABLES Final Resul t [facility]) [facility] [address] [place] [address], [place] [phone] * (ABNORMAL) Lipid panel with reflex to direct LDL (11/05/2024 12:37 PM EDT) Cholesterol 216(H) 0 - 200 mg/dL LAB CHEMISTRY METHOD 11/05/2024 3:00 PM EDT [facility] Triglycerides 72 0 - 150 mg/dL LAB CHEMISTRY METHOD 11/05/2024 3:00 PM EDT [facility] HDL 55 >=40 mg/dL LAB CHEMISTRY METHOD 11/05/2024 3:00 PM EDT [facility] LDL Calculated 147(H) 0 - 100 mg/dL LAB CHEMISTRY METHOD 11/05/2024 3:00 PM EDT [facility] VLDL Cholesterol Gopi 14.4 mg/dL LAB CHEMISTRY METHOD 11/05/2024 3:00 PM EDT [facility] Non HDL Chol. (LDL+VLDL) 161(H) <145 mg/dL LAB CHEMISTRY METHOD 11/05/2024 3:00 PM EDT [facility] Chol/HDL Ratio 3.9 0.0 - 4.4 LAB CHEMISTRY METHOD 11/05/2024 3:00 PM EDT [facility] Blood Venous blood specimen / Unknown Venipuncture / Unknown 11/05/2024 12:37 PM EDT 11/05/2024 1:35 PM EDT us Candida Vargas MD LAB BLOOD ORDERABLES Final Resul t [facility] [address] [place] [address], * (ABNORMAL) CBC auto differential (11/05/2024 12:37 PM EDT) WBC 3.2(L) 4.8 - 10.8 K/mcL LAB HEMETOLOGY METHOD 11/05/2024 2:02 PM EDT [facility] RBC 4.20 3.80 - 4.80 M/mcL LAB HEMETOLOGY METHOD 11/05/2024 2:02 PM EDT [facility] Hemoglobin 12.6 11.5 - 16.0 g/dL LAB HEMETOLOGY METHOD 11/05/2024 2:02 PM EDT [facility] Hematocrit 39.0 35.0 - 47.0 % LAB HEMETOLOGY METHOD 11/05/2024 [facility] MCV 93.1 79.0 - 98.0 FL LAB HEMETOLOGY METHOD 11/05/2024 2:[facility] MCH 30.1 27.0 - 32.0 pcg LAB HEMETOLOGY METHOD 11/05/2024 2:[facility] MCHC 32.3 32.0 - 37.0 g/dL LAB HEMETOLOGY METHOD 11/05/2024 2:[facility] RDW 12.1 11.0 - 15.0 % LAB HEMETOLOGY METHOD 11/05/2024 2:02 [facility] Platelets 209 130 - 400 K/mcL LAB HEMETOLOGY METHOD 11/05/2024 2:02 PM [facility] MPV 11.9(H) 7.0 - 11.0 FL LAB HEMETOLOGY METHOD 11/05/2024 2:02 [facility] NRBC 0.0 <1.0 % LAB HEMETOLOGY METHOD 11/05/2024 2:02 [facility] NRBC Absolute 0.00 <0.10 K/mcL LAB HEMETOLOGY METHOD 11/05/2024 2:02 [facility] Neutrophils Relative 47.4 % LAB HEMETOLOGY METHOD 11/05/2024 2:02 PM [facility] Lymphocytes Relative 40.6 % LAB HEMETOLOGY METHOD 11/05/2024 2:02 PM [facility] Monocytes Relative 7.1 % LAB HEMETOLOGY METHOD 11/05/2024 2:02 PM EDT [facility] Eosinophils Relative 3.4 % LAB HEMETOLOGY METHOD 11/05/2024 2:02 PM EDT [facility] Basophils Relative 1.2 % LAB HEMETOLOGY METHOD 11/05/2024 2:02 PM EDT [facility] Immature Granulocytes Relative 0.3 % LAB HEMETOLOGY METHOD 11/05/2024 2:02 PM EDT [facility] Neutrophils Absolute 1.53 1.50 - 7.00 K/mcL LAB HEMETOLOGY METHOD 11/05/2024 2:02 PM EDT [facility] Lymphocytes Absolute 1.31 1.00 - 5.00 K/mcL LAB HEMETOLOGY METHOD 11/05/2024 2:02 PM EDT [facility] Monocytes Absolute 0.23 0.20 - 1.00 K/mcL LAB HEMETOLOGY METHOD 11/05/2024 2:02 PM EDT [facility] Eosinophils Absolute 0.11 0.00 - 0.50 K/mcL LAB HEMETOLOGY METHOD 11/05/2024 2:02 PM EDT [facility] Basophils Absolute 0.04 0.00 - 0.20 K/mcL LAB HEMETOLOGY METHOD 11/05/2024 2:02 PM EDT [facility] Immature Granulocytes Absolute 0.01 0.00 - 0.03 K/mcL LAB HEMETOLOGY METHOD 11/05/2024 2:02 PM EDT [facility] Blood Venous blood specimen / Unknown Venipuncture / Unknown 11/05/2024 12:37 PM EDT 11/05/2024 1:40 PM EDT us Candida Vargas MD LAB BLOOD ORDERABLES Final Resul t [facility] [address] [place] [address], * (ABNORMAL) Hepatitis B e antibody (11/05/2024 12:37 PM EDT) Pathologist [facility] Hepatitis Be Antibody REACTIVE( A) Nonreactive 11/08/2024 6:10 AM EDT [facility] Comment: Test performed at [facility], [address] , [place], [place] ??[address] ? [phone] Mile Roth MD, PhD - [employer] Blood Venous blood specimen / Unknown Venipuncture / Unknown 11/05/2024 12:37 PM EDT 11/05/2024 1:35 PM EDT Candida Vargas MD LAB BLOOD ORDERABLES Final Resul t [facility] [address] [place] [address] * (ABNORMAL) Vitamin D 25 hydroxy (11/05/2024 12:37 PM EDT) [facility] Vit D, 25-Hydroxy 16.2(L) 30.0 - 80.0 ng/mL LAB CHEMISTRY METHOD 11/05/2024 2:44 PM EDT [facility] Blood Venous blood specimen / Unknown Venipuncture / Unknown 11/05/2024 12:37 PM EDT 11/05/2024 1:35 PM EDT Candida Vargas MD LAB BLOOD ORDERABLES Final Resul t [facility] [address] [place] [address], [place] [phone] * Hepatitis B surface antibody (11/05/2024 12:37 PM EDT) [facility] Hepatitis B Surface Ab Negative Negative LAB CHEMISTRY METHOD 11/05/2024 2:44 PM EDT [facility] Hepatitis B Surface Ab Quantitative 3.2 mIU/mL LAB CHEMISTRY METHOD 11/05/2024 2:44 PM EDT [facility] Blood Venous blood specimen / Unknown Venipuncture / Unknown 11/05/2024 12:37 PM EDT 11/05/2024 1:35 PM EDT Narrative [facility] - 11/05/2024 2:44 PM EDT >=10 mIU/mL is considered to be consistent with immunity. Candida Vargas MD LAB BLOOD ORDERABLES Final Resul t Performing Organization Address [facility] de Phone Number [facility] [address] [place] [address], [place] [phone] * Hemoglobin A1c (11/05/2024 12:37 PM EDT) Hemoglobin A1C 5.9 <6.5 % LAB CHEMISTRY METHOD 11/05/2024 8:25 PM EDT [facility] Mean Bld Glu Estim. 123 mg/dL LAB CHEMISTRY METHOD 11/05/2024 8:25 PM EDT [facility] Blood Venous blood specimen / Unknown Venipuncture / Unknown 11/05/2024 12:37 PM EDT 11/05/2024 1:40 PM EDT Candida Vargas MD LAB BLOOD ORDERABLES Final Resul t Performing Organization Address [facility] Co de Phone Number [facility] [address] [place] [address], [place] [phone] * (ABNORMAL) Comprehensive metabolic panel (11/05/2024 12:37 PM EDT) Sodium 141 133 - 145 mmol/L LAB CHEMISTRY METHOD 11/05/2024 3:00 PM EDT [facility] Potassium 5.0 3.5 - 5.5 mmol/L LAB CHEMISTRY METHOD 11/05/2024 3:00 PM EDT [facility] Comment:Hemolysis present Chloride 110 96 - 110 mmol/L LAB CHEMISTRY METHOD 11/05/2024 3:00 PM [facility] CO2 22 21 - 32 mmol/L LAB CHEMISTRY METHOD 11/05/2024 3:00 PM [facility] Anion Gap 9 3 - 11 LAB CHEMISTRY METHOD 11/05/2024 3:00 PM [facility] Glucose 112(H) 70 - 100 mg/dL LAB CHEMISTRY METHOD 11/05/2024 3:00 PM [facility] BUN 13 5 - 25 mg/dL LAB CHEMISTRY METHOD 11/05/2024 3:00 PM [facility] Creatinine 0.51 0.50 - 1.10 mg/dL LAB CHEMISTRY METHOD 11/05/2024 3:00 PM [facility] eGFR 102 >=60 mL/min/1. 73m2 LAB CHEMISTRY METHOD 11/05/2024 3:00 PM [facility] Comment:Calculation based on the??Chronic Kidney Disease Epidemiology Collaboration (CKD-EPI) equation refit??without adjustment for race. BUN/Creatinine Ratio 25.5 LAB CHEMISTRY METHOD 11/05/2024 3:00 PM [facility] Calcium 9.2 8.5 - 10.5 mg/dL LAB CHEMISTRY METHOD 11/05/2024 3:00 PM [facility] AST (SGOT) 31 10 - 42 unit/L LAB CHEMISTRY METHOD 11/05/2024 3:00 PM [facility] Comment:Hemolysis present ALT (SGPT) 26 10 - 60 unit/L LAB CHEMISTRY METHOD 11/05/2024 3:00 PM [facility] Alkaline Phosphatase 89 42 - 121 unit/L LAB CHEMISTRY METHOD 11/05/2024 3:00 PM [facility] Total Protein 7.4 6.0 - 8.0 g/dL LAB CHEMISTRY METHOD 11/05/2024 3:00 PM EDT [facility] Albumin 3.9 3.2 - 5.0 g/dL LAB CHEMISTRY METHOD 11/05/2024 3:00 PM EDT [facility] Total Bilirubin 0.4 0.0 - 1.4 mg/dL LAB CHEMISTRY METHOD 11/05/2024 3:00 PM EDT [facility] Blood Venous blood specimen / Unknown Venipuncture / Unknown 11/05/2024 12:37 PM EDT 11/05/2024 1:35 PM EDT us Candida Vargas MD LAB BLOOD ORDERABLES Final Resul t [facility] [address] [place] [address], * [facility] SCREENING DIGITAL (09/22/2023 4:42 PM EST) Anatomical Region Laterality Modality Mammography 09/22/2023 3:41 PM EST Narrative 09/22/2023 4:42 PM EST [facility] Diagnostic Imaging Department [address] [place] [address] Patient: ??JONEL MARIANO ?/Age/Sex: 1955 - F Unit#: ??[id number] ? Location/Status: ??SPDIMAM/REG CLI ? Mnemonic/Ordering Site: ??DIGSC/SPMAM Ordering Physician: ??JUAN JONAS MD [facility] Screening Digital - 09/22/23 - 1611 Report Status:Signed EXAM: [facility] Screening Digital EXAM DATE AND TIME: 09/22/2023 4:11 PM HISTORY: ??Annual screening COMPARISON: ??Multiple exams dating back to 2013 TECHNIQUE: Bilateral digital breast tomosynthesis was performed in the CC and MLO projections. Computer aided detection with [employer] 3D 3.1 was employed. TISSUE DENSITY: b. There are scattered areas of fibroglandular density. FINDINGS: No suspicious masses, grouped microcalcifications, or areas of architectural distortion are seen. The skin and vascularity are unremarkable. IMPRESSION: Stable mammographic appearance of the breasts. ??No evidence of malignancy is seen. A negative mammogram in the presence of a clinically suspicious palpable abnormality does not preclude the possibility of malignancy or alter the indications for biopsy. BI-RADS: ??Category 1: Negative RECOMMENDATION(S): 1: Routine screening mammogram BILATERAL in 1 year. 3341F, 7025F Dictating Physician: ??BALDEMAR CRYSTAL MD Electronically Signed by: ??BALDEMAR CRYSTAL MD Dic Date/Time: ??09/22/23 1640 Sign date/Time: ??09/22/23 1642 Procedure Note Baldemar Crystal MD - 04/12/2024 [facility] Diagnostic Imaging Department [address] [place] [id number] Patient: JONEL MARIANO /Age/Sex: 1955 - 68 - F Unit#: [id number] Location/Status: SPDIMAM/REG CLI Mnemonic/Ordering Site: DIGSC/SPMAM Ordering Physician: JUAN JONAS MD [facility] Screening Digital - 09/22/23 - 1611 Report Status:Signed EXAM: [facility] Screening Digital EXAM DATE AND TIME: 09/22/2023 4:11 PM HISTORY: Annual screening COMPARISON: Multiple exams dating back to 2013 TECHNIQUE: Bilateral digital breast tomosynthesis was performed in the CCand MLO projections. Computer aided detection with [employer] 3D 3.1was employed. TISSUE DENSITY: b. There are scattered areas of fibroglandular density. FINDINGS: No suspicious masses, grouped microcalcifications, or areas ofarchitectural distortion are seen. The skin and vascularity are unremarkable. IMPRESSION: Stable mammographic appearance of the breasts. No evidence of malignancyis seen. A negative mammogram in the presence of a clinically suspicious palpable abnormality does not preclude the possibility of malignancy or alter the indications for biopsy. BI-RADS: Category 1: Negative RECOMMENDATION(S): 1: Routine screening mammogram BILATERAL in 1 year. 3341F, 7045F Dictating Physician: BALDEMAR CRYSTAL MD Electronically Signed by: BALDEMAR CRYSTAL MD Dic Date/Time: 09/22/23 1640 Sign date/Time: 09/22/23 1642 us Juan Jonas MD IMG BI PROCEDURES Final Result * [facility] DEXA AXIAL SKELETON (01/30/2018 5:17 PM EDT) Anatomical Region Laterality Modality Mammography 01/29/2018 1:16 PM EDT Narrative 01/30/2018 5:17 PM EDT [facility] Diagnostic Imaging Department [address] [place] [address] Patient: ??JONEL MARIANO ?/Age/Sex: 1955 - 62 - F Unit#: ??[id number] ? Location/Status: ??SPDIMAM/REG CLI ? Mnemonic/Ordering Site: ??MAMDEXAAX/SPMAM Ordering Physician: ??BETTY MARIE MD [facility] Dexa Axial Skeleton - 01/29/18 - 142 [facility] Dexa Axial Skeleton INDICATION: POSTMENOPAUSAL Technique: Bone densitometry was performed utilizing dual energy x-ray absorptiometry (DEXA). The lumbar spine is evaluated in the AP projection from L1 through L4, though L2 was omitted because of sclerotic changes. The proximal femora are evaluated in the AP projection bilaterally. Comparison: 03/17/2014 Findings: AP spine: Bone mineral density: 1.045 gm/cm2 T-score: -1.0 Femoral total (mean, bilateral): Bone mineral density: 0.861 gm/cm2 T-score: -1.2 Statistically significant interval decreases in lumbar spine and hip bone mineral density compared with the previous exam. IMPRESSION: Findings suggesting osteopenia, placing the patient at risk for fracture. The FRAX result suggests a 10 year probability of major osteoporotic fracture of 15.6 % and hip fracture of 1.9%. 10 year probability of osteoporotic fracture may be lower than FRAX estimate if patient has received treatment. [id number] A report detailing these results has been enclosed. Dictating Physician: ??JO ALMARAZ MD Electronically Signed by: ??JO ALMARAZ MD Dic Date/Time: ??01/30/181714 Sign date/Time: ??01/30/181716 Procedure Note Jo Almaraz MD - 12/20/2022 [facility] Diagnostic Imaging Department [address] [place] [address] Patient: TIMMYANTONJONEL D.O.B./Age/Sex: 1955 - 62 - F Unit#: [id number] Location/Status: SPDIMAM/REG CLI [facility] Ordering Physician: BETTY MARIE MD [facility] Dexa Axial Skeleton - 01/29/18 - 1421 [facility] Dexa Axial Skeleton INDICATION: POSTMENOPAUSAL Technique: Bone densitometry was performed utilizing dual energy x-ray absorptiometry (DEXA). The lumbar spine is evaluated in the AP projectionfrom L1 through L4, though L2 was omitted because of sclerotic changes. Theproximal femora are evaluated in the AP projection bilaterally. Comparison: 03/17/2014 Findings: AP spine: Bone mineral density: 1.045 gm/cm2 T-score: -1.0 Femoral total (mean, bilateral): Bone mineral density: 0.861 gm/cm2 T-score: -1.2 Statistically significant interval decreases in lumbar spine and hipbone mineral density compared with the previous exam. IMPRESSION: Findings suggesting osteopenia, placing the patient at risk forfracture. The FRAX result suggests a 10 year probability of major osteoporoticfracture of 15.6 % and hip fracture of 1.9%. 10 year probability of osteoporotic fracture may be lower than FRAXestimate if patient has received treatment. [id number] A report detailing these results has been enclosed. Dictating Physician: JO ALMARAZ MD Electronically Signed by: JO ALMARAZ MD Dic Date/Time: 01/30/181714 Sign date/Time: 01/30/181716 us Betty Marie MD IMG BI PROCEDURES Final Resu lt from Last 3 Months or Most Recently Relevant to Health Maintenance Insurance [facility] Member Subscriber Plan / Payer (Ef fective 2023-Present) Name:Jonel Mariano Relation to Subscriber:Self Name:Jonel Mariano Payer ID:[id number] Group ID:[id number] Type:Not on file Address: [place] [address] [address] Advance Directives * Full Code - Confirmed (Latest Code Status on File) Date Activated Date Inactivated Comments 11/02/2024 2:56 PM This code stat us was ascertained in the following way: Code status discussion: discussion with patient To update the patient's code status, place a code status order. Do not modify or discontinue any currently active code status orders. Care Teams Outreach Professional Relationship Specialty Start Date End Date Juan Jonas MD 175 [facility] [address] [place] [address] PCP - General Internal Medicine 05/17/20
== END 2024-11-11 12:07 | disposition home or self-care (01) ==
LOC: HO.HSMS 11:10
PROVIDERS: PCP Internal Medicine; Visit Provider Nurse Practitioner Family
DX: G43.009 Migraine without aura, not intractable, without status migrainosus (principal); M54.2 Cervicalgia
CPT/HCPCS: 99214

== ENCOUNTER → 2024-11-11 11:09 | Outpatient (BNVA) | payer OTHER, SELFPAY | PROVIDERS: PCP Internal Medicine; Visit Provider Nurse Practitioner Family | DX: G43.009 Migraine without aura, not intractable, without status migrainosus (principal); M54.2 Cervicalgia | CPT/HCPCS: 99212 ==

== ENCOUNTER 2025-05-13 09:47 | Outpatient (AMB) | payer OTHER, SELFPAY ==
--- OUTSIDE RECORDS SUMMARY | 2025-05-13 08:15 | XMS_ITS | Encounter Summary ---
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 Off Saw Operator Pipe Blanks Name Role Phone Juan Jonas MD Primary Care Provider [phone] Reason for Referral * Imaging (Routine) - Pending Review Specialty Diagnoses / Procedures Referred By Contac t Referred To Contact Radiology Diagnoses Right upper quadrant abdominal pain Procedures NM Hepatobiliary System Imaging Juan Jonas MD [address] [address] Phone: tel: fax: [facility] Referral ID Status Reason Start Date Expiration Date V isits Requested Visits Authorized [id number] Pending Review 05/13/2025 05/13/2026 1 1 * Consultation (Routine) - Pending Review Specialty Diagnoses / Procedures Referred By Contac t Referred To Contact Vascular Surgery Diagnoses Right upper quadrant abdominal pain Right foot pain Symptomatic varicose veins, right Juan Jonas MD [address] [address] Phone: tel: fax: Referral ID Status Reason Start Date Expiration Date Visits Requested Visits Authorized [id number] Pending Review Specialty Services Required 05/13/2025 05/13/2026 1 1 * Consultation (Routine) - Pending Review Specialty Diagnoses / Procedures Referred By Contac t Referred To Contact Podiatry Diagnoses Right upper quadrant abdominal pain Right foot pain Symptomatic varicose veins, right Juan Jonas MD 175 [facility] [address] [place] [address] Phone: tel: fax: Referral ID Status Reason Start Date Expiration Date Visits Requested Visits Authorized [id number] Pending Review Specialty Services Required 05/13/2025 05/13/2026 1 1 * Consultation (Routine) - Pending Review Specialty Diagnoses / Procedures Referred By Suyapa t Referred To Contact Gastroenterology Diagnoses Right upper quadrant abdominal pain Right foot pain Symptomatic varicose veins, right Juan Jonas MD 175 [facility] [address] [place] [address] Phone: tel: fax: Referral ID Status Reason Start Date Expiration Date Visits Requested Visits Authorized [id number] Pending Review Specialty Services Required 05/13/2025 05/13/2026 1 1 Reason for Visit * Reason Comments Follow-up Encounter Details Date Type Department Care Team (Late st Contact Info) Description 05/13/2025 8:15 AM EDT Office Visit Internal Medicine - [place] [address] [address] Juan Jonas MD [address] [address] Right upper quadrant abdominal pain (Primary Dx); Right foot pain; Symptomatic varicose veins, right Social History Tobacco Use Types Packs/Day Years Used Date Smoking Tobacco: Never Smokeless Tobacco: Never Alcohol Use Standard Drinks/Week Comments No 0 (1 standard drink = 0.6 oz pur e alcohol) Housing Instability Answer Date Recorde d Are you worried that in the next 2 months you may not have stable housing? Unable to respond 05/12/2025 Food Access & Nutrition Answer Date Rec orded Do you have access to a vari ety of food including fruits and vegetables? Yes 05/12/2025 Access to Healthcare Answer Date Record ed Within the last 3 months, ho w many times did you visit the emergency department for your medical care? 0 05/12/2025 Health Literacy Answer Date Recorded How often do you need to hav e someone help you when you read instructions, pamphlets, or other written material from your doctor or pharmacy? Often 05/12/2025 Caregiver: How often do you need to have someone help you when you read instructions, pamphlets, or other written material from your doctor or pharmacy? Not on file 05/12/2025 Financial Risk Answer Date Recorded How hard is it for you to pa y for the very basics like food, housing, medical care, and air conditioning / heating? Somewhat hard 05/12/2025 Transportation Answer Date Recorded Has the lack of transportati on kept you from meetings, work, or from getting things needed for daily living? No Has the lack of transportati on kept you from medical appointments or from getting medications? No 05/12/2025 Social Isolation Answer Date Recorded How often do you feel lonely or isolated from th ose around you? Rarely 05/12/2025 Food Risk Answer Date Recorded Within the past 12 months we worried whether our food would run out before we got money to buy more. Never true 05/12/2025 Within the past 12 months th e food we bought just didn't last and we didn't have money to get more. Never true 05/12/2025 Dependent Care Answer Date Recorded Do you need help finding or paying for care for your loved ones. For example, child care attendant school or elderly care for an older adult? No 05/12/2025 Education Answer Date Recorded Do you think completing more education or training, like finishing a GED, going to college, or learning a trade, would be helpful for you? Unable to respond 05/12/2025 Employment and Income Answer Date Recor ded During the last four weeks, have you been actively looking for work? No 05/12/2025 Living Situation Answer Date Recorded What is your living situation? 0 05/12/2025 Comments Unknown Sex and Gender Information Value Date Recorded Sex Assigned at Female 11/11/2024 10:33 AM EDT Legal Sex Female 1:48 AM EST Gender Identity Female 11/11/2024 10:33 AM EDT Sexual Orientation Straight 11/11/2024 10 :33 AM EDT documented as of this encounter Last Filed Vital Signs Vital Sign Reading Time Taken Comments Blood Pressure 130/70 05/13/2025 8:23 AM EDT Pulse 71 05/13/2025 8:23 AM EDT Temperature 36.5 C (97.7 F) 05/13/2025 8:23 AM EDT Respiratory Rate - - Oxygen Saturation 97% 05/13/2025 8:23 AM EDT Inhaled Oxygen Concentration - - Weight 70.3 kg (155 lb) 05/13/2025 8:23 AM EDT Height 160 cm (5' 3 ) 05/13/2025 8:23 AM EDT Body Mass Index 27.46 05/13/2025 8:23 AM EDT documented in this encounter Plan of Treatment Pending Results Name Type Priority Associated Diagnoses Date /Time Comprehensive metabolic panel Lab Routine Right upper quadrant abdominal pain Right foot pain Symptomatic varicose veins, right 05/13/2025 8:48 AM EDT Lipid panel with reflex to direct LDL Lab Routine Right upper quadrant abdominal pain Right foot pain Symptomatic varicose veins, right 05/13/2025 8:48 AM EDT Thyroid stimulating hormone Lab Routine Right upper quadrant abdominal pain Right foot pain Symptomatic varicose veins, right 05/13/2025 8:48 AM EDT Lipase Lab Routine Right upper quadrant abdominal pain Right foot pain Symptomatic varicose veins, right 05/13/2025 8:48 AM EDT Scheduled Orders Name Type Priority Associated Diagnoses Orde r Schedule Comprehensive metabolic panel Lab Routine Right upper quadrant abdominal pain Right foot pain Symptomatic varicose veins, right 1 Occurrences starting 05/13/2025 until 05/13/2026 Lipid panel with reflex to direct LDL Lab Routine Right upper quadrant abdominal pain Right foot pain Symptomatic varicose veins, right 1 Occurrences starting 05/13/2025 until 05/13/2026 Thyroid stimulating hormone Lab Routine Right upper quadrant abdominal pain Right foot pain Symptomatic varicose veins, right 1 Occurrences starting 05/13/2025 until 05/13/2026 NM Hepatobiliary System Imaging Imaging Routine Right upper quadrant abdominal pain Expected: 05/13/2025, Expires: 05/13/2026 Lipase Lab Routine Right upper quadrant abdominal pain Right foot pain Symptomatic varicose veins, right 1 Occurrences starting 05/13/2025 until 05/13/2026 Scheduled Referrals Name Type Priority Associated Diagnoses Order Schedule Ambulatory referral to Gastroenterology Outpatient Referral Routine Right upper quadrant abdominal pain Right foot pain Symptomatic varicose veins, right 1 Occurrences starting 05/13/2025 until 05/13/2026 Ambulatory referral to Podiatry Outpatient Referral Routine Right upper quadrant abdominal pain Right foot pain Symptomatic varicose veins, right 1 Occurrences starting 05/13/2025 until 05/13/2026 Ambulatory referral to Vascular Surgery Outpatient Referral Routine Right upper quadrant abdominal pain Right foot pain Symptomatic varicose veins, right 1 Occurrences starting 05/13/2025 until 05/13/2026 documented as of this encounter Visit Diagnoses Diagnosis Right upper quadrant abdominal pain- Primary Right foot pain Pain in soft tissues of limb Symptomatic varicose veins, right documented in this encounter Additional Health Concerns Assessment Noted Time PHQ-9 Depression Total Score: 4 05/12/20 25 10:36 AM EDT A fall risk assessment has been complete d for the patient 11/02/2024 2:29 PM EDT documented as of this encounter Care Teams Cut Off Saw Operator Pipe Blanks Relationship Specialty Start Date End Date Juan Jonas MD [address] [place] [address] PCP - General Internal Medicine 05/17/20 documented as of this encounter
--- NOTE | 2025-05-13 10:01 | MHC.OFFVIS ---
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 Pt denies any significant interval medical changes. BP is normotensive today Pt reports headaches and neck pain are the same, occurring 2-3 times per week. Tolerating B2, Mag, Prorpanolol 10mg bid, and Topiramate well. Tylenol is not always effective Patient and daughter report the never received the Ubrelvy, which has been approved by her insurance. Headache questionnaire: Age/time of onset: In her 60s Preceding causes: none Prodrome symptoms: None Aura: None Headache characteristics: Moderate-severe, 7/10, Starts in the neck and back of the head, and moves up over the head into frontal region. Pain is pounding then steady pain. Can also have a pinching sensation that turns into a full headache in bilateral temples. Associated symptoms: SBP > 120, some photophobia, phonophobia. Denies focal weakness, autonomic symptoms. Postdrome: Unsure Aggravating factors: Neck pain or BP > 120. [facility] Medical History (Updated 05/14/25 @ 09:54 by EMILY Lanza) Necrotizing soft tissue infection Allergic rhinitis MCI (mild cognitive impairment) Palpitations Prolonged QT interval Hepatitis B, chronic Urinary incontinence Dysphagia Chronic back pain Varicose veins of both lower extremities HLD (hyperlipidemia) HTN (hypertension) Surgical History History of carpal tunnel release Social History Alcohol intake: never Patient Tobacco Use Status: Never used Tobacco Physical Exam Vital Signs: Last Vital Signs Pulse 78 05/13/25 10:02 BP 120/60 05/13/25 10:02 Pulse Ox 97 05/13/25 10:02 Oxygen Delivery Method Room Air 05/13/25 10:02 Const General: cooperative and no acute distress Orientation/consciousness: patient oriented x3 HEENT Head: Yes normocephalic Resp Effort & Inspection: normal respiratory effort and able to speak in complete sentences Neuro General: patient oriented x3, gait normal and CN's II-XI intact bilaterally Cognition (Neuro): normal cognition Motor exam (neuro): 5/5 motor strength present throughout Psych Appearance: grossly normal Mental Status: mental status grossly normal Speech and movement: Normal speech and movement present Affect: normal affect Attitude: cooperative Thought process: Normal thought process present Assessment & Plan Assessment & Plan (1) Migraine without aura: Code(s): G43.009 - Migraine without aura, not intractable, without status migrainosus Category: Medical Qualifiers: Status migrainosus presence: without status migrainosus Intractability: not intractable Qualified Code(s): G43.009 - Migraine without aura, not intractable, without status migrainosus (2) Cervicalgia: Comment: C-spine MRI w/o ([facility] 10/02/2020): IMPRESSION: Stable minimal degenerative changes of the cervical spine. No high-grade spinal canal or foraminal stenosis. No abnormal signal within the cervical cord. Code(s): M54.2 - Cervicalgia Category: Medical Plan For acute migraine headache treatment: May continue Tylenol prn. Again trial Ubrogepant (Ubrelvy) 100mg tab, 1/2 - 1 tab (50-100mg) at onset of headache, may repeat in 2 hours. Max of 2 tabs (200mg) per 24 hours. May adjunct with OTC Tylenol 650-1000 mg q 4-6 hours. We will resubmit an order to the pharmacy today. Daughter advised to notify us if there are any issues filling this prescription. Written instructions given Acute migraine medication contraindications: triptans d/t HLD, HTN ? For headache prevention medication: Continue Riboflavin 400mg qam Continue Magnesium 400mg qhs Continue Propranolol 10mg bid. Continue Topiramate 100mg qhs- for headaches and neck/shoulder pain. Previous migraine prevention medication trials: n/a Migraine prevention medication contraindications: none at this time. ? f/u in 6 months or sooner prn. Medications: Changed From ubrogepant (Ubrelvy) take at onset of migraine, may repeat in 2hrs (may take w/ Tylenol) 50 - 100 mg (0.5 - 1 x 100 mg) PO ONCE 30 days PRN 16 tabs 3RF migraine headache To ubrogepant (Ubrelvy) take at onset of migraine, may repeat in 2hrs (may take w/ Tylenol). 50 - 100 mg (0.5 - 1 x 100 mg) PO ONCE PRN 16 tabs 6RF migraine headache 30 days Refilled topiramate 100 mg PO BEDTIME 30 tabs 6RF 30 days propranolol 10 mg PO BID 60 tabs 6RF 30 days Coding Level of Care Code Est Pt Level 4 (93902) Diagnoses Migraine without aura and without status migrainosus, not intractable G43.009 Status migrainosus presence: without status migrainosus Intractability: not intractable Cervicalgia M54.2
[2025-05-13 10:02] VITALS: BP 120/60; PULSE 78; O2SAT 97
--- OUTSIDE RECORDS SUMMARY | 2025-05-13 10:23 | XMS_ITS | Clinical Summary ---
Author Organization [facility] Address [address] [place] [address] Care Team Providers Care Production Generalist Name Role Phone Dasha Cook Primary Care Provider [phone] Source Comments PLEASE NOTE, if this patient [...] 02/14/2006 Overview (04/21/2013): DJD Chronic hepatitis B ([facility]) 12/23/2005 Overview (04/21/2013): F/u [facility] GI. Hep B SAG positive 12/2005. Bilateral carpal tunnel syndrome Overview (11/04/2013): F/u [facility]. Lateral epicondylitis of both elbows Left hip pain Overview (04/21/2013): POST-OP SCARIRING SECONDARY TO INFECTION 1998 LEFT HIP. POST-INJECTION ABSCESS LEFT GLUTEAL/HIP AREA. Immunizations Immunization Administration Dates Next Due INFLUENZA, SEASONAL, INJECTABLE 04/21/2013 MMR (MMR II/Priorix) 11/01/2008,11/25/2005 Td (adult),2 Lf tetanus toxo id (TDVAX), preservative free 12/25/2005,11/25/2005 Varicella (Varivax), Live Vaccine 11/25/2005 Family History Medical History Relation Name Comments Heart Problems Father Relation Name Status Comments Father (Age 73) [place] Mother (Age 63) ? cause de ath [...] 56 10/20/2014 2:58 PM EST Temperature 36.2 C (97.2 F) 10/20/2014 2:58 PM EST Respiratory Rate 13 10/20/2014 2:58 PM EST Oxygen Saturation - - Inhaled Oxygen Concentration - - Weight 65.8 kg (145 lb) 10/20/2014 2:58 PM EST Height 152.4 cm (5') 10/20/2014 2:58 PM EST Body Mass Index 28.32 10/20/2014 2:58 PM EST Plan of Treatment Not on file Insurance [facility] Care Teams Production Generalist Relationship Specialty Start Date End Date Dasha Cook PA [address] [place] [address] PCP - General 04/21/13
--- OUTSIDE RECORDS SUMMARY | 2025-05-13 10:24 | XMS_ITS | Clinical Summary ---
Author Organization [address] [place] [address] Address [address] [place] [address] Phone Care Team Providers Care Mold Hoister Name Role Phone Juan Jonas MD Primary Care Provider [phone] Allergies Active Allergy Reactions Criticality Noted Date Comments Other 05/30/2023 Cats Seasonal Medications topiramate (TOPAMAX) 100 mg tablet Take 1 tablet (100 mg total) by mouth 1 (one) time each day. 90 tablet 1 08/09/20 24 Active propranoloL (INDERAL) 10 mg tablet TAKE 1 TABLET BY MOUTH TWICE A DAY 180 tablet 1 08/07/20 24 Active oxyBUTYnin (DITROPAN) 5 mg tablet TAKE 1 TABLET BY MOUTH TWICE A DAY 180 tablet 1 09/20/19 25 Active tiZANidine (ZANAFLEX) 2 mg tablet TAKE 1 TABLET BY MOUTH AT BEDTIME NEEDED FOR UP TO 90 DAYS 90 tablet 1 09/20/19 25 Active donepeziL (ARICEPT) 5 mg tablet TAKE 1 TABLET BY MOUTH EVERYDAY AT BEDTIME 90 tablet 1 09/20/19 25 Active amLODIPine (NORVASC) 5 mg tablet TAKE 1 TABLET BY MOUTH EVERY DAY 90 tablet 1 09/20/19 25 Active DULoxetine (CYMBALTA) [address] Bradly ions:Radiculop athy, cervical region TAKE 1 CAPSULE BY MOUTH EVERY DAY 90 capsule 1 10/06/19 25 Active betamethasone, augmented, (DIPROLENE-AF) 0.05 % cream APPLY TWICE A DAY ON THE RASH FOR 10 DAYS 06/24/20 24 Active urea (CARMOL) 20 % cream Apply twice daily on the right meyers area. For 10 days 02/04/20 23 Active miscellaneous medical supply misc 1 Device by Does not apply route daily. Compression 1520 Diagnosis Code I83.93 11/17/19 19 Active celecoxib (CeleBREX) 200 mg capsule Take 1 capsule (200 mg total) by mouth 1 (one) time each day. 30 capsule 5 12/08/19 25 Active ammonium lactate (AMLACTIN) 12 % cream APPLY TOPICALLY IF NEEDED FOR DRY SKIN. 280 g 2 02/12/20 25 Active cholecalcifero l (VITAMIN D-3) 50 mcg (2,000 unit) capsule TAKE 1 TABLET (2,000 UNITS TOTAL) BY MOUTH ONCE DAILY 90 capsule 1 04/29/20 25 Active atorvastatin (LIPITOR) 40 mg tablet TAKE 1 TABLET BY MOUTH EVERY DAY 90 tablet 1 05/04/20 25 Active atorvastatin (LIPITOR) 40 mg tablet TAKE 1 TABLET BY MOUTH EVERY DAY 90 tablet 1 09/20/19 25 025 Discontinued diclofenac (VOLTAREN) 1 % topical gel Apply 2 g topically 4 (four) times a day. 100 g 5 11/03/19 25 025 cholecalcifero l (Vitamin D3) 50 mcg (2,000 unit) tablet Take 1 tablet (2,000 Units total) by mouth 1 (one) time each day. 90 tablet 1 11/07/19 25 025 Discontinued Active Problems Problem Noted Date Diagnosed Date Chronic osteoarthritis 11/02/2024 Varicose veins of both lower extremities 019 Chronic hand pain, left 05/25/2018 Hyperlipidemia 05/25/2018 Back pain, chronic 01/15/2018 Dysphagia 01/15/2018 Urinary incontinence 01/15/2018 Vitamin deficiency 01/15/2018 Hepatitis B, chronic (CMS/HCC V24, CMS/HCC V28) 12/04/2016 Palpitations 11/22/2016 Prolonged QT interval 11/22/2016 MCI (mild cognitive impairment) 06/21/2016 Sinus bradycardia 05/16/2016 Allergic rhinitis 04/15/2016 Encounters Date Type Department Care Team Description 05/13/2025 8:15 AM EDT Office Visit Internal Medicine - [address] [place] [address] Juan Jonas MD Right upper quadrant abdominal pain (Primary Dx); Right foot pain; Symptomatic varicose veins, right from Last 3 Months Immunizations Name Administration [...] necrotizing infection CARPAL TUNNEL RELEASE Right PROCEDURE: [place] NEUROPLASTY &/TRANSPOS MEDIAN NRV CARPAL TUNNE Medical History Medical History Date Comments Allergic rhinitis 04/15/2016 DX:Allergic rh initis Back pain, chronic 01/15/2018 DX:Back pain, chronic Chronic hand pain, left 05/25/2018 DX:Chron ic hand pain, left Dysphagia 01/15/2018 DX:Dysphagia Hepatitis B, chronic (CMS/HC C V24, CMS/HCC V28) 12/04/2016 DX:Hepatitis B, chronic (HCC ) Hyperlipidemia 05/25/2018 DX:Hyperlipidemi a MCI (mild cognitive impairment) 06/21/2016 DX:MCI (mild cognitive impairment) Palpitations 11/22/2016 DX:Palpitations Prolonged QT interval 11/22/2016 DX:Prolong ed QT interval Sinus bradycardia 05/16/2016 DX:Sinus reic cardia Urinary incontinence 01/15/2018 DX:Urinary incontinence Vitamin [...] care for your loved ones. For example, school child care attendant or elderly care for an older adult? [...] Mass Index 27.46 05/13/2025 8:23 AM EDT Plan of Treatment Health Maintenance Due Date Last Done Comments Hepatitis A Vaccines (1 of 2 - Risk 2-dose series) 1976 Pneumococcal Vaccine: 50+ Years (1 of 2 - PCV) 1976 Zoster Vaccines (1 of 2) 2007 11/25/2005 Hepatitis B Vaccines (1 of 3 - Risk 3-dose series) 2017 RSV Immunization Adult Patients (1 - Risk 60-74 years 1-dose series) 2017 Hepatitis C Screening 08/03/2022 COVID-19 Vaccine ( season) 2025 09/18/2021, 02/12/2021, 01/22/2021 Influenza Vaccine (#1) 2025 , 06/29/2019, 04/21/2013 Breast Cancer Screening 09/22/2025 09/22/19 24, 09/17/2022, 09/07/2021, Additional history exists Falls Risk Assessment 11/02/2025 11/02/2024 Medicare Annual Wellness Visit 11/02/2025 11/02/2024 Hypertension/CHF/CAD Annual BMP Blood Test 11/05/2025 11/05/2024, 05/19/2024, 05/19/2024, Additional history exists Social Influencers of Health Screening 05/12/2026 05/12/2025, 11/02/2024 Colorectal Cancer Screening: FIT-DNA (Cologuard) 11/11/2027 11/10/2024, 11/10/2024, 11/10/2024 Osteoporosis Screening (Bone Density Screening) 01/31/2028 01/30/2018 [...] on patient's age to complete this topic Depression Screening Completed 05/12/2025 HIB Vaccines Aged Out No longer eligi [...] age to complete this topic Meningococcal B Vaccine Aged Out No l onger eligible based on patient's age to complete this topic RSV Immunization Patients Under 20 months Aged Out No longer eligible based on patient's age to complete this topic Procedures Procedure Name Priority Date/Time Associated Diagnosis Comments CBC WITH AUTO DIFFERENTIAL Routine 05/13/2025 8:48 AM EDT Right upper quadrant abdominal pain Right foot pain Symptomatic varicose veins, right CBC AND DIFFERENTIAL Routine 05/13/2025 8:48 AM EDT Right upper quadrant abdominal pain Right foot pain Symptomatic varicose veins, right LAB COLOGUARD COLON CANCER SCREEN Routine 11/10/2024 9:05 PM EDT Colon cancer screening COMPREHENSIVE METABOLIC PANEL Routine 11/05/2024 12:37 PM EDT Medicare annual wellness visit, subsequent Other fatigue LIPID PANEL WITH REFLEX TO DIRECT LDL Routine 11/05/2024 12:37 PM EDT Medicare annual wellness visit, subsequent Mixed hyperlipidemia LEONEL SCREENING DIGITAL Routine 09/22/2023 4:42 PM EST Encounter for screening mammogram for malignant neoplasm of breast [facility] DEXA AXIAL SKELETON Routine 01/30/2018 5:17 PM EDT Encounter for screening for osteoporosis from Last 3 Months or Most Recently Relevant to Health Maintenance Results * (ABNORMAL) CBC auto differential (05/13/2025 8:48 AM EDT) Pathologist [facility] WBC 5.3 4.8 - 10.8 K/mcL LAB HEMETOLOGY METHOD 05/13/2025 10:18 AM [facility] RBC 4.20 3.80 - 4.80 M/mcL LAB HEMETOLOGY METHOD 05/13/2025 10:18 AM [facility] Hemoglobin 12.2 11.5 - 16.0 g/dL LAB HEMETOLOGY METHOD 05/13/2025 10:18 AM [facility] Hematocrit 37.3 35.0 - 47.0 % LAB HEMETOLOGY METHOD 05/13/2025 10:18 AM [facility] MCV 89.7 79.0 - 98.0 FL LAB HEMETOLOGY METHOD 05/13/2025 10:18 AM [facility] MCH 29.3 27.0 - 32.0 pcg LAB HEMETOLOGY METHOD 05/13/2025 10:18 AM [facility] MCHC 32.7 32.0 - 37.0 g/dL LAB HEMETOLOGY METHOD 05/13/2025 10:18 AM [facility] RDW 12.5 11.0 - 15.0 % LAB HEMETOLOGY METHOD 05/13/2025 10:18 AM [facility] Platelets 212 130 - 400 K/mcL LAB HEMETOLOGY METHOD 05/13/2025 10:18 AM [facility] MPV 11.6(H) 7.0 - 11.0 FL LAB HEMETOLOGY METHOD 05/13/2025 10:18 AM [facility] NRBC 0.0 <1.0 % LAB HEMETOLOGY METHOD 05/13/2025 10:18 AM [facility] NRBC Absolute 0.00 <0.10 K/mcL LAB HEMETOLOGY METHOD 05/13/2025 10:18 AM [facility] Neutrophils Relative 52.9 % LAB HEMETOLOGY METHOD 05/13/2025 10:18 AM [facility] Lymphocytes Relative 32.6 % LAB HEMETOLOGY METHOD 05/13/2025 10:18 AM [facility] Monocytes Relative 10.9 % LAB HEMETOLOGY METHOD 05/13/2025 10:18 AM [facility] Eosinophils Relative 2.6 % LAB HEMETOLOGY METHOD 05/13/2025 10:18 AM [facility] Basophils Relative 0.6 % LAB HEMETOLOGY METHOD 05/13/2025 10:18 AM [facility] Immature Granulocytes Relative 0.4 % LAB HEMETOLOGY METHOD 05/13/2025 10:18 AM [facility] Neutrophils Absolute 2.83 1.50 - 7.00 K/mcL LAB HEMETOLOGY METHOD 05/13/2025 10:18 AM [facility] Lymphocytes Absolute 1.74 1.00 - 5.00 K/mcL LAB HEMETOLOGY METHOD 05/13/2025 10:18 AM [facility] Monocytes Absolute 0.58 0.20 - 1.00 K/mcL LAB HEMETOLOGY METHOD 05/13/2025 10:18 AM [facility] Eosinophils Absolute 0.14 0.00 - 0.50 K/mcL LAB HEMETOLOGY METHOD 05/13/2025 10:18 AM [facility] Basophils Absolute 0.03 0.00 - 0.20 K/mcL LAB HEMETOLOGY METHOD 05/13/2025 10:18 AM EDT [facility] Immature Granulocytes Absolute 0.02 0.00 - 0.03 K/mcL LAB HEMETOLOGY METHOD 05/13/2025 10:18 AM EDT [facility] Blood Venous blood specimen / Unknown Venipuncture / Unknown 05/13/2025 8:48 AM EDT 05/13/2025 8:48 AM EDT us Juan Jonas MD LAB BLOOD ORDERABLES Final Resul t [facility] [address] [place] [address], * Cologuard?? colon cancer screening (11/10/2024 9:05 PM EDT) COLOGUARD Negative Negative [facility] Comment: NEGATIVE TEST RESULT. A negative Cologuard result indicates a low likelihood that a colorectal cancer (CRC) or advanced adenoma (adenomatous polyps with more advanced pre-malignant features) is present. The chance that a person with a negative Cologuard test has a colorectal cancer is less than 1 in 1500 (negative predictive value >99.9%) or has an advanced adenoma is less than 5.3% (negative predictive value 94.7%). These data are based on a prospective cross-sectional study of 10,000 individuals at average risk for colorectal cancer who were screened with both Cologuard and colonoscopy. (Melvin Camp al, N Engl J Med 2014;370(14):7497-5324) The normal value (reference range) for this assay is negative. COLOGUARD RE-SCREENING RECOMMENDATION: Periodic colorectal cancer screening is an important part of preventive healthcare for asymptomatic individuals at average risk for colorectal cancer. Following a negative Cologuard result, the [place] [employer] and U.S. Multi-Society Task Force screening guidelines recommend a Cologuard re-screening interval of 3 years. References: [place] [employer] Guideline for Colorectal Cancer Screening: https://www.cancer.org/cancer/grvmm-jgmdiu-xzsvpx/fcdcjrmdo-zekekbgns-pczzjby/ac s-rec ommendations.html.; Tristan DK, Jitendra CR, Rae UrbanoK, Colorectal Cancer Screening: Recommendations for Physicians and Patients from the U.S. Multi-Society Task Force on Colorectal Cancer Screening , Am J Gastroenterology 2017; 112:2983-5688. TEST DESCRIPTION: Composite algorithmic analysis of stool DNA-biomarkers with hemoglobin immunoassay. Quantitative values of individual biomarkers are not reportable and are not associated with individual biomarker result reference ranges. Cologuard is intended for colorectal cancer screening of adults of either sex, 45 years or older, who are at average-risk for colorectal cancer (CRC). Cologuard has been approved for use by the U.S. FDA. The performance of Cologuard was established in a cross sectional study of average-risk adults aged 50-84. Cologuard performance in patients ages 45 to 49 years was estimated by sub-group analysis of near-age groups. Colonoscopies performed for a positive result may find as the most clinically significant lesion: colorectal cancer [4.0%], advanced adenoma (including sessile serrated polyps greater than or equal to 1cm diameter) [20%] or non- advanced adenoma [31%]; or no colorectal neoplasia [45%]. These estimates are derived from a prospective cross-sectional screening study of 10,000 individuals at average risk for colorectal cancer who were screened with both Cologuard and colonoscopy. (Melvin Camp al, N Engl J Med 2014;370(14):7500-0234.) Cologuard may produce a false negative or false positive result (no colorectal cancer or precancerous polyp present at colonoscopy follow up). A negative Cologuard test result does not guarantee the absence of CRC or advanced adenoma (pre-cancer). The current Cologuard screening interval is every 3 years. ([place] [employer] and U.S. Multi-Society Task Force). Cologuard performance data in a 10,000 patient pivotal study using colonoscopy as the reference method can be accessed at the following location: www.[employer].Fresh Direct/results. Additional description of the Cologuard test process, warnings and precautions can be found at www.[employer].Fresh Direct. Stool 11/10/2024 9:05 PM EDT 11/12/2024 10:31 AM EDT Candida Vargas MD LAB MOLECULAR DIAGNOSTICS ORDERA BLES Final Result [employer] [facility] - [address] [place] [address] [facility] [address] [place] [address] * (ABNORMAL) Lipid panel with reflex to direct LDL (11/05/2024 12:37 PM EDT) Cholesterol 216(H) 0 - 200 mg/dL LAB CHEMISTRY METHOD 11/05/2024 3:00 PM EDT [facility] Triglycerides 72 0 - 150 mg/dL LAB CHEMISTRY METHOD 11/05/2024 3:00 PM EDT [facility] HDL 55 >=40 mg/dL LAB CHEMISTRY METHOD 11/05/2024 3:00 PM EDT [facility] LDL Calculated 147(H) 0 - 100 mg/dL LAB CHEMISTRY METHOD 11/05/2024 3:00 PM EDT [facility] VLDL Cholesterol Gopi 14.4 mg/dL LAB CHEMISTRY METHOD 11/05/2024 3:00 PM EDT [facility] Non HDL Chol. (LDL+VLDL) 161(H) <145 mg/dL LAB CHEMISTRY METHOD 11/05/2024 3:00 PM EDT [facility] Chol/HDL Ratio 3.9 0.0 - 4.4 LAB CHEMISTRY METHOD 11/05/2024 3:00 PM EDT [facility] Blood Venous blood specimen / Unknown Venipuncture / Unknown 11/05/2024 12:37 PM EDT 11/05/2024 1:35 PM EDT Candida Vargas MD LAB BLOOD ORDERABLES Final Resul t Performing Organization Address City/[facility]/ZIP Co de Phone Number [facility] [address] [place] [address], * (ABNORMAL) Comprehensive metabolic panel (11/05/2024 12:37 PM EDT) Sodium 141 133 - 145 mmol/L LAB CHEMISTRY METHOD 11/05/2024 3:00 PM [facility] Potassium 5.0 3.5 - 5.5 mmol/L LAB CHEMISTRY METHOD 11/05/2024 3:00 PM [facility] Comment:Hemolysis present Chloride 110 96 - 110 mmol/L LAB CHEMISTRY METHOD 11/05/2024 3:00 PM [facility] CO2 22 21 - 32 mmol/L LAB CHEMISTRY METHOD 11/05/2024 3:00 PM [facility] Anion Gap 9 3 - 11 LAB CHEMISTRY METHOD 11/05/2024 3:00 PM [facility] Glucose 112(H) 70 - 100 mg/dL LAB CHEMISTRY METHOD 11/05/2024 3:00 PM [facility] BUN 13 5 - 25 mg/dL LAB CHEMISTRY METHOD 11/05/2024 3:00 PM [facility] Creatinine 0.51 0.50 - 1.10 mg/dL LAB CHEMISTRY METHOD 11/05/2024 3:00 PM [facility] eGFR 102 >=60 mL/min/1. 73m2 LAB CHEMISTRY METHOD 11/05/2024 3:00 PM [facility] Comment:Calculation based on the Chronic Kidney Disease Epidemiology Collaboration (CKD-EPI) equation refit without adjustment for race. BUN/Creatinine Ratio 25.5 LAB CHEMISTRY METHOD 11/05/2024 3:00 PM [facility] Calcium 9.2 8.5 - 10.5 mg/dL LAB CHEMISTRY METHOD 11/05/2024 3:00 PM [facility] AST (SGOT) 31 10 - 42 unit/L LAB CHEMISTRY METHOD 11/05/2024 3:00 PM EDT [facility] Comment:Hemolysis present ALT (SGPT) 26 10 - 60 unit/L LAB CHEMISTRY METHOD 11/05/2024 3:00 PM EDT [facility] Alkaline Phosphatase 89 42 - 121 unit/L LAB CHEMISTRY METHOD 11/05/2024 3:00 PM EDT [facility] Total Protein 7.4 6.0 - 8.0 g/dL LAB CHEMISTRY METHOD 11/05/2024 3:00 PM EDT [facility] Albumin 3.9 3.2 - 5.0 g/dL LAB CHEMISTRY METHOD 11/05/2024 3:00 PM EDT [facility] Total Bilirubin 0.4 0.0 - 1.4 mg/dL LAB CHEMISTRY METHOD 11/05/2024 3:00 PM EDT [facility] Blood Venous blood specimen / Unknown Venipuncture / Unknown 11/05/2024 12:37 PM EDT 11/05/2024 1:35 PM EDT us Candida Vargas MD LAB BLOOD ORDERABLES Final Resul t [facility] [address] [place] [address], * LEONEL SCREENING DIGITAL (09/22/2023 4:42 PM EST) Anatomical Region Laterality Modality Mammography 09/22/2023 3:41 PM EST Narrative 09/22/2023 4:42 PM EST [facility] Diagnostic Imaging Department [address] [place] [address] Patient: JONEL MARIANO/Age/Sex: 1955 - 68 - F Unit#: [id number] Location/Status: SPDIMAM/REG CLI Mnemonic/Ordering Site: [facility] Ordering Physician: JUAN JONAS MD [facility] Screening Digital - 09/22/23 - 1611 Report Status:Signed EXAM: [facility] Screening Digital EXAM DATE AND TIME: 09/22/2023 4:11 PM HISTORY: Annual screening COMPARISON: Multiple exams dating back to 2013 TECHNIQUE: Bilateral digital breast tomosynthesis was performed in the CC and MLO projections. Computer aided detection with [employer] 3D 3.1 was employed. TISSUE DENSITY: b. There are scattered areas of fibroglandular density. FINDINGS: No suspicious masses, grouped microcalcifications, or areas of architectural distortion are seen. The skin and vascularity are unremarkable. IMPRESSION: Stable mammographic appearance of the breasts. No evidence of malignancy is seen. A negative mammogram in the presence of a clinically suspicious palpable abnormality does not preclude the possibility of malignancy or alter the indications for biopsy. BI-RADS: Category 1: Negative RECOMMENDATION(S): 1: Routine screening mammogram BILATERAL in 1 year. 3341F, 7025F Dictating Physician: BALDEMAR CRYSTAL MD Electronically Signed by: BALDEMAR CRYSTAL MD Dic Date/Time: 09/22/23 1640 Sign date/Time: 09/22/23 1642 Procedure Note Baldemar Crystal MD - 04/12/2024 [facility] Diagnostic Imaging Department [address] [place] [id number] Patient: JONEL MARIANO /Age/Sex: 1955 - 68 - F Unit#: [id number] Location/Status: SPDIMAM/REG CLI Mnemonic/Ordering Site: [facility] Ordering Physician: JUAN JONAS MD [facility] Screening Digital - 09/22/23 - 1611 Report Status:Signed EXAM: [facility] Screening Digital EXAM DATE AND TIME: 09/22/2023 4:11 PM HISTORY: Annual screening COMPARISON: Multiple exams dating back to 2013 TECHNIQUE: Bilateral digital breast tomosynthesis was performed in the CCand MLO projections. Computer aided detection with [employer] 3D 3.1was employed. TISSUE DENSITY: b. There [...] in 1 year. 3341F, 7025F Dictating Physician: BALDEMAR CRYSTAL MD Electronically Signed by: BALDEMAR CRYSTAL MD Dic Date/Time: 09/22/23 1640 Sign date/Time: 09/22/23 1642 Juan Jonas MD IMG BI PROCEDURES Final Result * [facility] DEXA AXIAL SKELETON (01/30/2018 5:17 PM EDT) Anatomical Region Laterality Modality Mammography 01/29/2018 1:16 PM EDT Narrative 01/30/2018 5:17 PM EDT [facility] Diagnostic Imaging Department [address] [place] [id number] Patient: JONEL MARIANO /Age/Sex: 1955 - 62 - F Unit#: [id number] Location/Status: SPDIMAM/REG CLI Mnemonic/Ordering Site: [facility]DEXAAX/SPMAM Ordering Physician: BETTY MARIE MD [facility] Dexa Axial Skeleton - 01/29/18 - 1420 [facility] Dexa Axial Skeleton INDICATION: POSTMENOPAUSAL Technique: Bone [...] FRAX estimate if patient has received treatment. [id number] A report detailing these results has been enclosed. Dictating Physician: JO ALMARAZ MD Electronically Signed by: JO ALAMRAZ MD Dic Date/Time: 01/30/18 1714 Sign date/Time: 01/30/18 1717 Procedure Note Jo Almaraz MD - 08/13/2022 [facility] Diagnostic Imaging Department [address] [place] [id number] Patient: HEIDY MARIANORuben /Age/Sex: 1955 - 62 - F Unit#: [id number] [facility] Mnemonic/Ordering Site: [facility] Ordering Physician: BETTY MARIE MD [facility] Dexa Axial Skeleton - 01/29/18 - 1420 [facility] Dexa Axial Skeleton INDICATION: POSTMENOPAUSAL Technique: Bone [...] than FRAXestimate if patient has received treatment. [id number] A report detailing these results has been enclosed. Dictating Physician: JO ALMARAZ MD Electronically Signed by: JO ALMARAZ MD Dic Date/Time: 01/30/181714 Sign date/Time: 01/30/181716 us Betty Marie MD IMG BI PROCEDURES Final Resu lt from Last 3 Months or Most Recently Relevant to Health Maintenance Insurance [employer] MEDICARE Member Subscriber Plan / Payer (Ef fective 2023-Present) Name:JONEL MARIANO Relation to Subscriber:Self Name:Jonel Mariano Payer ID:[id number] Group ID:[id number] Type:Not on file Address: [place] [address] [address] [id number] Advance Directives * Full Code - Confirmed (Latest Code Status on File) Date Activated Date Inactivated Comments 11/02/2024 2:56 PM This code stat us was ascertained in the following way: Code status discussion: discussion with patient To update the patient's code status, place a code status order. Do not modify or discontinue any currently active code status orders. Care Teams Mold Hoister Relationship Specialty Start Date End Date Juan Jonas MD [address] [place] [address] [address] [place] [address] PCP - General Internal Medicine 05/17/20
--- OUTSIDE RECORDS SUMMARY | 2025-05-13 10:24 | XMS_ITS ---
Author Name [facility] Organization Unknown Care Team Organization Name Specialty Phone Email Start Date End Da te [facility] SOFIA VALENTE Primary Care 05/01/2023 04/12/20 [facility] SOFIA RINGRIL Primary Care 07/02/2022 04/12/20 24
== END 2025-05-13 10:42 | disposition home or self-care (01) ==
LOC: HO.HSMS 09:48
PROVIDERS: PCP Internal Medicine; Visit Provider Nurse Practitioner Family
DX: G43.009 Migraine without aura, not intractable, without status migrainosus (principal); M54.2 Cervicalgia
CPT/HCPCS: 99214

== ENCOUNTER → 2025-05-13 09:47 | Outpatient (BNVA) | payer OTHER, SELFPAY | PROVIDERS: PCP Internal Medicine; Visit Provider Nurse Practitioner Family | DX: G43.009 Migraine without aura, not intractable, without status migrainosus (principal); M54.2 Cervicalgia | CPT/HCPCS: 99212 ==